=== PATIENT | female | born 1940 | race Caucasian/White ===

== ENCOUNTER 2017-09-09 15:30 | Observation (INO) | payer MEDICARE ==
[~2017-09-09] VITALS: Ht 154.9 cm; Wt 84.0 kg
[~2017-09-09 15:30] MED LIST: ASPI81CH6 CHEW; ATOR10TA15 PO; CILO50TA PO; CIPR-9 PO; D200CAP PO; HYDR-3516 PO; LOSA50TA PO; METO-309 PO; NYST10007 TOPICAL; OMEP20TA93 PO; TRAZ50TA12 PO; VENTAER INH
[2017-09-09 15:32] VITALS: BP 142/66; PULSE 87; RESP 14; TEMP 98; O2SAT 97
--- NOTE | 2017-09-09 16:37 | PD ---
HPI Chief Complaint: GI Complaint Time Seen by Provider: 16:31 Travel History International Travel<30 days: No Contact w/Intl Traveler<30days: No Traveled to known affect area: No History of Present Illness HPI 77-year-old female came to the emergency room with history of color stool 4-5 times a day for past 5 days. Patient went to the urgent care today and was transferred to the emergency room from there. She has been having some generalized weakness for past few days. Patient had a endoscopy and colonoscopy [address] Romero and that was negative. Vital signs are stable right now. No history of any vomiting or abdominal pain. Patient is on 1 baby aspirin daily. This has never happened to her in the past. [facility] Past Medical History Narrative Medical List of her past medical, surgical, social and family history is reviewed from the nursing note. Anemia: Yes Autoimmune Disease: No Blood Disorders: No Heart Rhythm Problems: Yes Cancer: No Cardiovascular Problems: Yes High Cholesterol: Yes Chemotherapy: No Chest Pain: No Congestive Heart Failure: No Cerebrovascular Accident: Yes (2014) Coronary Artery Disease: Yes Diabetes: No Diminished Hearing: No Diverticulitis: Yes Endocrine: No Gastrointestinal Disorders: Yes GERD: Yes Glaucoma: No Genitourinary: Yes Hepatitis: No Hiatal Hernia: No Hypertension: Yes Immune Disorder: No Implanted Vascular Access Dvce: No Musculoskeletal: No Neurologic: Yes (TIA X 2) Psychiatric: No Reproductive: No Respiratory: Yes (SLEEP APNEA) Myocardial Infarction: No Radiation Therapy: No Shingles: Yes Sleep Apnea: Yes (USES CPAP "SOMETIMES") Thyroid Disease: No Menopausal: Yes : 0 Past Surgical History Abdominal Surgery: Yes (ISABEL; APPENDECTOMY) AICD: No Appendectomy: Yes Cardiac Surgery: No Cholecystectomy: Yes Ear Surgery: No Endocrine Surgery: No Eye Surgery: Yes (BILATERAL CATARACTS) Genitourinary Surgery: No Gynecologic Surgery: Yes (HYSTERECTOMY; --BILATERAL SALPINGO--OOPHORECTOMY) Hysterectomy: Yes Neurologic Surgery: No Oral Surgery: No Pacemaker: No Thoracic Surgery: No Other Surgery: Yes Social History Alcohol Use: No Tobacco Use: No (QUIT 1983) Substance Use: No Allergies-Medications (Allergen,Severity, Reaction): Coded Allergies: latex (Verified Allergy, Severe, REDNESS, SWELLING, 09/09/17) SITE REACTION- INTERMEDIATE REACTION niacin (Verified Allergy, Intermediate, Itching, 09/09/17) HIVES & REDNESS ; VERY NERVOUS ACTING; SEVERE REACTION Sulfa (Sulfonamide Antibiotics) (Verified Allergy, Unknown, HIVES, ) MILD REACTION penicillin G (Verified Allergy, Unknown, HIVES, 09/09/17) SEVERE REACTION - HIVES INCREASE IN HEART RATE; DIFFICULT BREATHING Comments List of her allergies reviewed from the nursing note. Reported Meds & Prescriptions Reported Meds & Active Scripts Active Lopressor (Metoprolol Tartrate) 50 Mg Tab 75 Mg PO Q8HR 30 Days Trazodone (Trazodone HCl) 50 Mg Tab 50 Mg PO HS Reported Zolpidem (Zolpidem Tartrate) 10 Mg Tab 10 Mg PO HS PRN Ventolin Hfa 18 GM Inh (Albuterol Sulfate) 90 Mcg/Act Aer 2 Puff INH Q4-6H PRN Atorvastatin (Atorvastatin Calcium) 10 Mg Tab 10 Mg PO HS Cilostazol 50 Mg Tab 50 Mg PO BID Aspirin Low Dose (Aspirin) 81 Mg Chew 81 Mg CHEW DAILY D3 Super Strength (Cholecalciferol) 2,000 Unit Cap 2,000 Units PO DAILY Narrative Medication List of her home medications reviewed from the nursing note. Review of Systems Except as stated in HPI: all other systems reviewed are Neg Gastrointestinal: Positive: Hematochezia Neurologic: Positive: Weakness Physical Exam Narrative GENERAL: Awake, alert, obese, mild distress SKIN: Focused skin assessment warm/dry. Pale HEAD: Atraumatic. Normocephalic. EYES: Pupils equal and round. No scleral icterus. No injection or drainage. Pallor ENT: No nasal bleeding or discharge. Mucous membranes pink and moist. NECK: Trachea midline. No JVD. CARDIOVASCULAR: Regular rate and rhythm. No murmur appreciated. RESPIRATORY: No accessory muscle use. Clear to auscultation. Breath sounds equal bilaterally. GASTROINTESTINAL: Abdomen soft, non-tender, nondistended. Hepatic and splenic margins not palpable. MUSCULOSKELETAL: No obvious deformities. No clubbing. No cyanosis. No edema. NEUROLOGICAL: Awake and alert. No obvious cranial nerve deficits. Motor grossly within normal limits. Normal speech. PSYCHIATRIC: Appropriate mood and affect; insight and judgment normal. Data Data Last Documented VS Orders Orders Complete Blood Count With Diff (09/09/17 15:46) Comprehensive Metabolic Panel (09/09/17 15:46) Lipase (09/09/17 15:46) Prothrombin Time / Inr (Pt) (09/09/17 15:46) Act Partial Throm Time (Ptt) (09/09/17 15:46) Type And Screen (09/09/17 15:46) Continuum Of Care Manager / Telemetry VARINDER.Q8H (09/09/17 16:58) Sodium Chlor 0.9% 1000 Ml Inj (Ns 1000 M (09/09/17 17:00) Sodium Chloride 0.9... W/Pantoprazole In (09/09/17 17:58) Sodium Chloride 0.9... W/Pantoprazole In (09/09/17 17:58) Admit Order (Ed Use Only) (09/09/17 17:09) Labs Laboratory Tests Test 09/09/17 16:05 White Blood Count 7.7 TH/MM3 Red Blood Count 3.54 MIL/MM3 Hemoglobin 10.8 GM/DL Hematocrit 31.4 % Mean Corpuscular Volume 88.7 FL Mean Corpuscular Hemoglobin 30.6 PG Mean Corpuscular Hemoglobin Concent 34.5 % Red Cell Distribution Width 14.5 % Platelet Count 126 TH/MM3 Mean Platelet Volume 7.0 FL Neutrophils (%) (Auto) 64.0 % Lymphocytes (%) (Auto) 25.0 % Monocytes (%) (Auto) 5.3 % Eosinophils (%) (Auto) 4.9 % Basophils (%) (Auto) 0.8 % Neutrophils # (Auto) 4.9 TH/MM3 Lymphocytes # (Auto) 1.9 TH/MM3 Monocytes # (Auto) 0.4 TH/MM3 Eosinophils # (Auto) 0.4 TH/MM3 Basophils # (Auto) 0.1 TH/MM3 CBC Comment DIFF FINAL Differential Comment Blood Urea Nitrogen 61 MG/DL Creatinine 2.07 MG/DL Random Glucose 122 MG/DL Total Protein 7.8 GM/DL Albumin 3.6 GM/DL Calcium Level 8.4 MG/DL Alkaline Phosphatase 119 U/L Aspartate Amino Transf (AST/SGOT) 26 U/L Alanine Aminotransferase (ALT/SGPT) 27 U/L Total Bilirubin 0.3 MG/DL Sodium Level 132 MEQ/L Potassium Level 4.8 MEQ/L Chloride Level 102 MEQ/L Carbon Dioxide Level 20.8 MEQ/L Anion Gap 9 MEQ/L Estimat Glomerular Filtration Rate 23 ML/MIN Lipase 274 U/L [facility] Medical Decision Making Medical Screen Exam Complete: Yes Emergency Medical Condition: Yes Medical Record Reviewed: Yes Differential Diagnosis Upper GI bleed, lower GI bleed Narrative Course 5:04 PM blood test results are back. Patient is mildly anemic but certainly not to the point where transfusion is needed. Chemistry suggestive off BUN/ creatinine elevation in the upper portion that is suggestive of upper GI bleed. I have ordered 1 L of IV fluid bolus. I discussed the case with Dr. Romero and he is okay with the management and he will see the patient. Waiting for the hospitalist to call back. Critical Care Narrative Aggregate critical care time was 30 minutes. Time to perform other separately billable procedures was not included in the critical care time. My time did not include minutes spent treating any other patients simultaneously or on activities that did not directly contribute to the patient's treatment. The services I provided to this patient were to treat and/or prevent clinically significant deterioration that could result in: GI bleed, Protonix bolus and drip I provided critical care services requiring my management, as noted below: Chart data review, documentation time, medication orders and management, vital sign assessments/reviewing monitor data, ordering and reviewing lab tests, ordering and interpreting/reviewing x-rays and diagnostic studies, care of the patient and discussion of the patient with the admitting physicians. Procedures EKG Prior to Arrival: No HemaPrompt Point of Care Internal Pos. & Neg. Controls: Passed Fecal Specimen Occult Blood: Positive Physician Communication Physician Communication Dr. Romero Diagnosis Primary Impression: GI bleed Qualified Codes: K92.2 - Gastrointestinal hemorrhage, unspecified Additional Impression: Renal failure Qualified Codes: N17.9 - Acute kidney failure, unspecified Admitting Information Admitting Physician Requests: Admit Scripts Omeprazole (Omeprazole) 20 Mg Tab 40 MG PO DAILY for gerd, #60 TAB 0 Refills Prov: Trice Coyle 09/11/17 Trish Matthew MD Sep 09, 2017 16:37
[2017-09-09 16:43] LABS: AUTOMATED NEUTROPHIL # 4.9 TH/MM3 (1.8-7.7); BASOPHIL # 0.1 TH/MM3 (0-0.2); BASOPHIL % 0.8 % (0.0-2.0); EOSINOPHIL # 0.4 TH/MM3 (0-0.4); EOSINOPHIL % 4.9 % (0.0-4.0); HEMATOCRIT 31.4 % (35.0-46.0); HEMO FLAGS DIFF FINAL; LYMPHOCYTE # 1.9 TH/MM3 (1.0-4.8); MEAN CELL VOLUME 88.7 FL (80.0-100.0); MEAN CORPUSCULAR HEMOGLOBIN 30.6 PG (27.0-34.0); MEAN CORPUSCULAR HGB CONC 34.5 % (32.0-36.0); MONO % 5.3 % (0.0-8.0); PLATELET COUNT 126 TH/MM3 (150-450); RED BLOOD COUNT 3.54 MIL/MM3 (4.00-5.30); RED CELL DISTRIBUTION WIDTH 14.5 % (11.6-17.2); WHITE BLOOD COUNT 7.7 TH/MM3 (4.0-11.0)
[2017-09-09 16:50] LABS: ALT (GPT) 27 U/L (10-53); ANION GAP 9 MEQ/L (5-15); AST (GOT) 26 U/L (15-37); BICARBONATE 20.8 MEQ/L (21.0-32.0); BLOOD UREA NITROGEN 61 MG/DL (7-18); CHLORIDE 102 MEQ/L (98-107); GLOMERULAR FILTRATION RATE 23 ML/MIN (>89); SODIUM (NA) 132 MEQ/L (136-145)
[2017-09-09 16:52] LABS: ALKALINE PHOSPHATASE 119 U/L (45-117); POTASSIUM 4.8 MEQ/L (3.5-5.1); TOTAL BILIRUBIN ADULT 0.3 MG/DL (0.2-1.0)
[2017-09-09] MEDS ORDERED: SODIUM CHLOR 0.9% 1000 ML INJ 1,000 ML IV ONE (17:00)
[2017-09-09 17:37] VITALS: BP 135/60; PULSE 83; RESP 18; O2SAT 97
[2017-09-09] MEDS ORDERED: PANTOPRAZOLE INJ 80 MG in SODIUM CHLORIDE 0.9% INJ 35 ML IV ONE (17:58)
[2017-09-09] MEDS ORDERED: SODIUM CHLORIDE 0.9% FLUSH 10 ML FLUSH IV FLUSH PRN (18:15)
--- NOTE | 2017-09-09 18:21 | HHI.HP ---
HPI Service [facility] Hospitalists Primary Care Physician Kulwinder Lugo MD Admission Diagnosis GI bleed Chief Complaint: dark stool, heme + stool as outpt Travel History International Travel<30 Days: No Contact w/Intl Traveler <30 Da: No Traveled to Known Affected Are: No History of Present Illness Pleasant 77-year-old female with history of coronary disease hypertension and peripheral arterial disease presents to the ER for evaluation directed by urgent care practitioner secondary to heme positive stool. Patient reports that she's had multiple dark tarry stools over the last 4-5 days. She denies any fevers or chills and denies hemoptysis or hematemesis. No coffee-ground emesis. No foreign travel. She never had similar dark bowel movements before. She does have history of diverticulitis in the past and a significant angulation of her sigmoid causing difficulty with attempted colonoscopies in the past. She reports that she felt a bit fatigued but otherwise no symptoms. Denies chest pain or shortness of breath. Denies urinary symptoms. She has not been eating much of late but does state she is hungry presently. Vital signs remained stable. Hemoglobin was around 10-1/2. Review of Systems Constitutional: COMPLAINS OF: Fatigue, DENIES: Diaphoretic episodes, Fever, Weight gain, Weight loss, Chills, Dizziness, Change in appetite, Night Sweats Eyes: DENIES: Blurred vision, Diplopia, Eye inflammation, Eye pain, Vision loss , Photosensitivity, Double Vision Ears, nose, mouth, throat: DENIES: Tinnitus, Hearing loss, Vertigo, Nasal discharge, Oral lesions, Throat pain, Hoarseness, Ear Pain, Running Nose, Epistaxis, Sinus Pain, Toothache, Odynophagia Respiratory: COMPLAINS OF: Wheezing, DENIES: Apneas, Cough, Snoring, Hemoptysis , Sputum production, Shortness of breath Cardiovascular: DENIES: Chest pain, Palpitations, Syncope, Dyspnea on Exertion , PND, Lower Extremity Edema, Orthopnea, Claudication Gastrointestinal: COMPLAINS OF: Black stools, Diarrhea, GERD, Reflux, DENIES: Abdominal pain, Bloody stools, BRB per rectum, Constipation, Nausea, Vomiting, Difficulty Swallowing, Anorexia, See HPI Musculoskeletal: COMPLAINS OF: Joint pain, Back pain Integumentary: DENIES: Abnormal pigmentation, Pruritus, Rash, Nail changes, Breast masses, Breast skin changes, Nipple discharge Hematologic/lymphatic: DENIES: Bruising, Lymphadenopathy Immunologic/allergic: DENIES: Eczema, Urticaria Neurologic: DENIES: Abnormal gait, Headache, Localized weakness, Paresthesias, Seizures, Speech Problems, Tremor, Poor Balance Psychiatric: COMPLAINS OF: Anxiety, DENIES: Confusion, Mood changes, Depression , Hallucinations, Agitation, Suicidal Ideation, Homicidal Ideation, Delusions, History of Bipolar, History of Schizophrenia Past Family Social History Past Medical History Macular degen CAD Renal artery stenosis CKD-3 COPD GERD HTN Hyperlipidemia PAD Thrombocytosis TIA Colonic stricture Past Surgical History Appy 1960 Cholecystectomy 1998 Hysterectomy 1968 Renal artery stent placement L shoulder surgery T&A Colonoscopy 05/2013- tight sigmoid angulation could not pass scope, ? stricture Reported Medications Lopressor (Metoprolol Tartrate) 50 Mg twice a day Trazodone (Trazodone HCl) 50 Mg Tab 50 Mg PO HS Ventolin Hfa 18 GM Inh (Albuterol Sulfate) 90 Mcg/Act Aer 2 Puff INH Q4-6H PRN Losartan (Losartan Potassium) 50 Mg Tab twice a day Atorvastatin (Atorvastatin Calcium) 10 Mg Tab 10 Mg PO HS Cilostazol 50 Mg Tab 50 Mg PO BID Omeprazole 20 Mg Tab 20 Mg PO DAILY Aspirin Low Dose (Aspirin) 81 Mg Chew 81 Mg CHEW DAILY Multivitamin once daily Amlodipine 5 mg twice a day Ambien 10 mg daily at bedtime when necessary Allergies: Coded Allergies: latex (Unverified Allergy, Severe, REDNESS, SWELLING, 09/09/17) SITE REACTION- INTERMEDIATE REACTION niacin (Unverified Allergy, Intermediate, Itching, 09/09/17) HIVES & REDNESS ; VERY NERVOUS ACTING; SEVERE REACTION Sulfa (Sulfonamide Antibiotics) (Unverified Allergy, Unknown, HIVES, 09/09) MILD REACTION penicillin G (Unverified Allergy, Unknown, HIVES, 09/09/17) SEVERE REACTION - HIVES INCREASE IN HEART RATE; DIFFICULT BREATHING Family History N/C Social History No tobacco since 1983, prior to that smoked 1 to 1-1/2 packs per day for 16 years No alcohol in several years Originally from [place], has been in the area for over 30 years Previous work with her selling light fixtures Physical Exam Vital Signs Vital Signs Date Time Temp Pulse Resp B/P (MAP) Pulse Ox O2 Delivery O2 Flow Rate FiO2 09/09/17 17:37 83 18 135/60 (85) 97 Room Air 09/09/17 15:32 98.0 87 14 142/66 (91) 97 Physical Exam GENERAL: This is a well-nourished, well-developed patient, in no apparent distress. Alert and oriented. SKIN: No rashes, ecchymoses or lesions. Cool and dry. No petechiae. HEAD: Atraumatic. Normocephalic. No temporal or scalp tenderness. EYES: Pupils equal round and reactive. Extraocular motions intact. No scleral icterus. No injection or drainage. ENT: Nose without bleeding, purulent drainage or septal hematoma. Airway patent. NECK: Trachea midline. No JVD or lymphadenopathy. Supple, nontender, no meningeal signs. CARDIOVASCULAR: Regular rate and rhythm without murmurs, gallops, or rubs. RESPIRATORY: Clear to auscultation. Breath sounds equal bilaterally. No wheezes , rales, or rhonchi. GASTROINTESTINAL: Abdomen soft, non-tender, nondistended. No hepato-splenomegaly , or palpable masses. No guarding. Bowel sounds normal. MUSCULOSKELETAL: Extremities without clubbing, cyanosis, or edema. No joint tenderness, effusion, or edema noted. No calf tenderness. NEUROLOGICAL: Awake and alert. Cranial nerves II through XII intact. Motor and sensory grossly within normal limits. Five out of 5 muscle strength in all muscle groups. Normal speech. Laboratory Laboratory Tests Test 09/09/17 16:05 White Blood Count 7.7 Red Blood Count 3.54 Hemoglobin 10.8 Hematocrit 31.4 Mean Corpuscular Volume 88.7 Mean Corpuscular Hemoglobin 30.6 Mean Corpuscular Hemoglobin Concent 34.5 Red Cell Distribution Width 14.5 Platelet Count 126 Mean Platelet Volume 7.0 Neutrophils (%) (Auto) 64.0 Lymphocytes (%) (Auto) 25.0 Monocytes (%) (Auto) 5.3 Eosinophils (%) (Auto) 4.9 Basophils (%) (Auto) 0.8 Neutrophils # (Auto) 4.9 Lymphocytes # (Auto) 1.9 Monocytes # (Auto) 0.4 Eosinophils # (Auto) 0.4 Basophils # (Auto) 0.1 CBC Comment DIFF FINAL Differential Comment Blood Urea Nitrogen 61 Creatinine 2.07 Random Glucose 122 Total Protein 7.8 Albumin 3.6 Calcium Level 8.4 Alkaline Phosphatase 119 Aspartate Amino Transf (AST/SGOT) 26 Alanine Aminotransferase (ALT/SGPT) 27 Total Bilirubin 0.3 Sodium Level 132 Potassium Level 4.8 Chloride Level 102 Carbon Dioxide Level 20.8 Anion Gap 9 Estimat Glomerular Filtration Rate 23 Lipase 274 Result Diagram: 09/09/17 1605 09/09/17 1605 Caprini VTE Risk Assessment Caprini VTE Risk Assessment: Mod/High Risk (score >= 2) Caprini Risk Assessment Model Point Value = 1 Point Value = 2 Point Value = 3 Point Value = 5 Age 41-60 Minor surgery BMI > 25 kg/m2 Swollen legs Varicose veins or History of unexplained or recurrent spontaneous Oral contraceptives or hormone replacement Sepsis (< 1 month) Serious lung disease, including pneumonia (< 1 month) Abnormal pulmonary function Acute myocardial infarction Congestive heart failure (< 1 month) History of inflammatory bowel disease Medical patient at bed rest Age 61-74 Arthroscopic surgery Major open surgery (> 45 min) Laparoscopic surgery (> 45 min) Malignancy Confined to bed (> 72 hours) Immobilizing plaster cast Central venous access Age >= 75 History of VTE Family history of VTE Factor V Leiden Prothrombin [id number] Lupus anticoagulant Anticardiolipin antibodies Elevated serum homocysteine Heparin-induced thrombocytopenia Other congenital or acquired thrombophilia Stroke (< 1 month) Elective arthroplasty Hip, pelvis, or leg fracture Acute spinal cord injury (< 1 month) Prophylaxis Regimen Total Risk Factor Score Risk Level Prophylaxis Regimen 0-1 Low Early ambulation 2 Moderate Order ONE of the following: *Sequential Compression Device (SCD) *Heparin 5000 units SQ BID 3-4 Higher Order ONE of the following medications: *Heparin 5000 units SQ TID *Enoxaparin/Lovenox 40 mg SQ daily (WT < 150 kg, CrCl > 30 mL/min) *Enoxaparin/Lovenox 30 mg SQ daily (WT < 150 kg, CrCl > 10-29 mL/min) *Enoxaparin/Lovenox 30 mg SQ BID (WT < 150 kg, CrCl > 30 mL/min) AND/OR *Sequential Compression Device (SCD) 5 or more Highest Order ONE of the following medications: *Heparin 5000 units SQ TID (Preferred with Epidurals) *Enoxaparin/Lovenox 40 mg SQ daily (WT < 150 kg, CrCl > 30 mL/min) *Enoxaparin/Lovenox 30 mg SQ daily (WT < 150 kg, CrCl > 10-29 mL/min) *Enoxaparin/Lovenox 30 mg SQ BID (WT < 150 kg, CrCl > 30 mL/min) AND *Sequential Compression Device (SCD) Assessment and Plan Problem List: (1) GI bleed ICD Codes: K92.2 - Gastrointestinal hemorrhage, unspecified Status: Acute Plan: VSS. GI consulted. We'll allow her to have clear liquids presently. Hx of tight sigmoid angulation so colonoscopy may be difficult (2) GERD (gastroesophageal reflux disease) ICD Codes: K21.9 - GERD (gastroesophageal reflux disease) Status: Chronic Plan: continue PPI GI to see pt (3) CKD (chronic kidney disease) stage 3, GFR 30-59 ml/min ICD Codes: N18.3 - Chronic kidney disease, stage III (moderate) Status: Chronic Plan: GFR a bit lower than baseline. Will provide IVF. Elevated BUN likely secondary to GI bleed monitor I/O, renal indices (4) HTN (hypertension), benign ICD Codes: I10 - Benign hypertension Status: Chronic Plan: Resume home meds as clinically appropriate. (5) CAD (coronary artery disease) ICD Codes: I25.10 - Coronary artery disease Status: Chronic Plan: No symptoms. We'll hold aspirin and cilostazol for now. Code Status full Discussed Condition With Patient, her nurse and ER provider Problem Qualifiers (1) GI bleed: Qualified Codes: K92.2 - Gastrointestinal hemorrhage, unspecified Jaison Patel MD PhD Sep 09, 2017 18:21
[2017-09-09 20:00] VITALS: BP 176/73; PULSE 86; RESP 18; TEMP 96.3; O2SAT 98
[2017-09-09] MEDS ORDERED: RESP: ALBUTEROL 2.5 MG/IPRATROPIUM 0.5 MG NEB (PRN) NEB (20:15)
[2017-09-09] MEDS: PANTOPRAZOLE INJ 80 MG in SODIUM CHLORIDE 0.9% INJ 100 ML IV SCH (20:38)
[2017-09-09] MEDS: SODIUM CHLOR 0.9% 1000 ML INJ 1,000 ML IV SCH (20:38)
[2017-09-09] MEDS: SODIUM CHLORIDE 0.9% FLUSH 10 ML FLUSH IV FLUSH SCH (20:39)
[2017-09-09] MEDS ORDERED: ZOLP10TA3 PO (20:41)
[2017-09-09] MEDS ORDERED: METOPROLOL TARTRATE 50 MG TAB PO SCH (22:45)
[2017-09-09] MEDS ORDERED: LOSARTAN 50 MG TAB PO SCH (22:45)
[2017-09-09] MEDS ORDERED: ZOLPIDEM TARTRATE 10 MG TAB PO SCH (22:45)
[2017-09-09] MEDS: ATORVASTATIN 10 MG TAB PO SCH (23:25)
[2017-09-09] MEDS: traZODone HCL 50 MG TAB PO SCH (23:25)
[2017-09-09] MEDS ORDERED: MAGNESIUM CITRATE SOLN 300 ML BTL PO ONE (23:30)
--- NOTE | 2017-09-09 23:32 | PD.CONS ---
HPI History of Present Illness This is a 77 year old female well-known to me from prior encounters presents to the emergency room with complaints of dark stools over the past few days she apparently was seen in the urgent care and was found to be guaiac-positive and so she was advised coming to the emergency room she does feel fatigued and tired some mild shortness of breath but denies any chest pain lightheadedness dizziness denies any nausea vomiting hematemesis coffee-ground emesis last time there was an attempted colonoscopy was incomplete due to technical difficulty PFSH Past Medical History Macular degen CAD Renal artery stenosis CKD-3 COPD GERD HTN Hyperlipidemia PAD Thrombocytosis TIA Colonic stricture Past Surgical History Appy 196 Cholecystectomy 1998 Hysterectomy 1968 Renal artery stent placement L shoulder surgery T&A Colonoscopy 05/2013- tight sigmoid angulation could not pass scope, ? stricture Coded Allergies: latex (Verified Allergy, Severe, REDNESS, SWELLING, 09/09/17) SITE REACTION- INTERMEDIATE REACTION niacin (Verified Allergy, Intermediate, Itching, 09/09/17) HIVES & REDNESS ; VERY NERVOUS ACTING; SEVERE REACTION Sulfa (Sulfonamide Antibiotics) (Verified Allergy, Unknown, HIVES, ) MILD REACTION penicillin G (Verified Allergy, Unknown, HIVES, 09/09/17) SEVERE REACTION - HIVES INCREASE IN HEART RATE; DIFFICULT BREATHING Medications Lopressor (Metoprolol Tartrate) 50 Mg twice a day Trazodone (Trazodone HCl) 50 Mg Tab 50 Mg PO HS Ventolin Hfa 18 GM Inh (Albuterol Sulfate) 90 Mcg/Act Aer 2 Puff INH Q4-6H PRN Losartan (Losartan Potassium) 50 Mg Tab twice a day Atorvastatin (Atorvastatin Calcium) 10 Mg Tab 10 Mg PO HS Cilostazol 50 Mg Tab 50 Mg PO BID Omeprazole 20 Mg Tab 20 Mg PO DAILY Aspirin Low Dose (Aspirin) 81 Mg Chew 81 Mg CHEW DAILY Multivitamin once daily Amlodipine 5 mg twice a day Ambien 10 mg daily at bedtime when necessary Family History Noncontributory Social History No alcohol or tobacco Review of Systems ROS Review of systems Patient denies any headache dizziness blurry vision, denies any chest pain shortness of breath cough fever chills, Denies any palpitations or fatigue denies any polyuria dysuria hematuria, denies any numbness tingling or weakness, denies any skin rash pruritus or jaundice, denies any easy bruising or bleeding tendency, denies any recent change in mood GI Exam Vitals I&O Vital Signs Date Time Temp Pulse Resp B/P (MAP) Pulse Ox O2 Delivery O2 Flow Rate FiO2 09/09/17 20:00 96.3 86 18 176/73 (107) 98 09/09/17 17:37 83 18 135/60 (85) 97 Room Air 09/09/17 15:32 98.0 87 14 142/66 (91) 97 Laboratory Test 09/09/17 16:05 White Blood Count 7.7 TH/MM3 Red Blood Count 3.54 MIL/MM3 Hemoglobin 10.8 GM/DL Hematocrit 31.4 % Mean Corpuscular Volume 88.7 FL Mean Corpuscular Hemoglobin 30.6 PG Mean Corpuscular Hemoglobin Concent 34.5 % Red Cell Distribution Width 14.5 % Platelet Count 126 TH/MM3 Mean Platelet Volume 7.0 FL Neutrophils (%) (Auto) 64.0 % Lymphocytes (%) (Auto) 25.0 % Monocytes (%) (Auto) 5.3 % Eosinophils (%) (Auto) 4.9 % Basophils (%) (Auto) 0.8 % Neutrophils # (Auto) 4.9 TH/MM3 Lymphocytes # (Auto) 1.9 TH/MM3 Monocytes # (Auto) 0.4 TH/MM3 Eosinophils # (Auto) 0.4 TH/MM3 Basophils # (Auto) 0.1 TH/MM3 CBC Comment DIFF FINAL Differential Comment Blood Urea Nitrogen 61 MG/DL Creatinine 2.07 MG/DL Random Glucose 122 MG/DL Total Protein 7.8 GM/DL Albumin 3.6 GM/DL Calcium Level 8.4 MG/DL Alkaline Phosphatase 119 U/L Aspartate Amino Transf (AST/SGOT) 26 U/L Alanine Aminotransferase (ALT/SGPT) 27 U/L Total Bilirubin 0.3 MG/DL Sodium Level 132 MEQ/L Potassium Level 4.8 MEQ/L Chloride Level 102 MEQ/L Carbon Dioxide Level 20.8 MEQ/L Anion Gap 9 MEQ/L Estimat Glomerular Filtration Rate 23 ML/MIN Lipase 274 U/L Physical Examination HEENT: Pupils round and reactive to light; normocephalic; atraumatic; no jaundice. Throat is clear. NECK: Neck is supple, no JVD, no lymphadenopathy. CHEST: Chest is clear to auscultation and percussion. CARDIAC: Regular rate and rhythm with no murmur gallop or rubs. ABDOMEN: Soft, nondistended, nontender; no hepatosplenomegaly; bowel sounds are present in all four quadrants. EXTREMITIES: No clubbing, cyanosis, or edema. SKIN: Normal; no rash; no jaundice. FISH HEADER: No focal deficits; alert and oriented times three. Assessment and Plan Plan Anemia, guaiac-positive stools Patient advised an EGD and a colonoscopy and she is agreeable I do agree with current supportive care Monitor labs and transfuse as needed Further recommendations shall depend on the findings of endoscopy Levi Romero MD Sep 09, 2017 23:32
[2017-09-10] VITALS (8 sets, daily range): BP systolic 99–151; BP diastolic 51–69; PULSE 87–123; RESP 17–18; TEMP 96–96.8; O2SAT 95–99
[2017-09-10] MEDS ORDERED: MAGNESIUM CITRATE SOLN 300 ML BTL PO ONE (05:00)
[2017-09-10 05:14] LABS: AUTOMATED NEUTROPHIL # 6.3 TH/MM3 (1.8-7.7); BASOPHIL # 0.1 TH/MM3 (0-0.2); BASOPHIL % 0.8 % (0.0-2.0); EOSINOPHIL # 0.6 TH/MM3 (0-0.4); EOSINOPHIL % 6.1 % (0.0-4.0); HEMATOCRIT 29.4 % (35.0-46.0); HEMO FLAGS DIFF FINAL; LYMPH % 21.9 % (9.0-44.0); LYMPHOCYTE # 2.1 TH/MM3 (1.0-4.8); MEAN CELL VOLUME 86.7 FL (80.0-100.0); MEAN CORPUSCULAR HEMOGLOBIN 29.4 PG (27.0-34.0); MEAN CORPUSCULAR HGB CONC 33.9 % (32.0-36.0); MONO % 5.4 % (0.0-8.0); NEUT % 65.8 % (16.0-70.0); PLATELET COUNT 343 TH/MM3 (150-450); RED BLOOD COUNT 3.39 MIL/MM3 (4.00-5.30); RED CELL DISTRIBUTION WIDTH 14.5 % (11.6-17.2); WHITE BLOOD COUNT 9.6 TH/MM3 (4.0-11.0)
[2017-09-10 05:33] LABS: APTT (PATIENT) 24.7 SEC (24.3-30.1); PROTHROMBIN TIME - PATIENT 10.2 SEC (9.8-11.6)
[2017-09-10 05:43] LABS: ALT (GPT) 25 U/L (10-53); ANION GAP 9 MEQ/L (5-15); AST (GOT) 18 U/L (15-37); BICARBONATE 22.1 MEQ/L (21.0-32.0); BLOOD UREA NITROGEN 58 MG/DL (7-18); CHLORIDE 107 MEQ/L (98-107); GLOMERULAR FILTRATION RATE 25 ML/MIN (>89); SODIUM (NA) 138 MEQ/L (136-145)
[2017-09-10 05:45] LABS: ALKALINE PHOSPHATASE 113 U/L (45-117); TOTAL BILIRUBIN ADULT 0.3 MG/DL (0.2-1.0)
[2017-09-10] MEDS ORDERED: LOSARTAN 50 MG TAB PO SCH (09:00)
[2017-09-10] MEDS ORDERED: INFLUENZA VIRUS VACCINE (QUADRIVALENT) 0.5 ML SYR IM ONE (09:00)
[2017-09-10] MEDS: SODIUM CHLORIDE 0.9% FLUSH 10 ML FLUSH IV FLUSH SCH ×2 (09:00→19:39)
[2017-09-10] MEDS: METOPROLOL TARTRATE 50 MG TAB PO SCH ×2 (09:00→19:38)
[2017-09-10] MEDS ORDERED: DO NOT ADM ANY ANTICOAGULANT DRUGS PRN (10:20)
--- NOTE | 2017-09-10 11:01 | PD.PROCEDR ---
GI Procedure REFERRING PHYSICIAN Dr. Mckenzie PROCEDURE PERFORMED EGD with biopsy and cautery followed by a colonoscopy INDICATION FOR PROCEDURE Anemia and guaiac positive stools PROCEDURE: The procedure, risks and benefits were discussed with Ms. Purdy and informed consent was obtained. Anesthesia sedated her with Diprivan. She was placed in the left lateral decubitus position. EGD: The Pentax videoscope was introduced through the oropharynx and advanced to the second portion of the duodenum under direct visualization. Retroflexion was performed in the stomach. FINDINGS: The esophagus this was normal The stomach there was a small hiatal hernia there was some punctate patchy erythema in the antrum no ulcerations or erosions this was biopsied the rest of the gastric mucosa was unremarkable The duodenum there was a small AVM at the duodenal sweep this was cauterized otherwise the duodenum was unremarkable Colonoscopy: The Pentax videoscope was introduced through the rectum and advanced to the hepatic flexure. Retroflexion was performed in the rectum. Colonic prep was good FINDINGS: I was only able to advance the scope to the hepatic flexure and unable to push beyond that due to technical difficulty apart from diverticulosis colonic mucosa was unremarkable within normal limits there was kind of a kink or tortuosity in the sigmoid played to this limitation of colonoscopy ESTIMATED BLOOD LOSS: None SPECIMENS REMOVED: Stomach COMPLICATIONS: None IMPRESSION: Hiatal hernia Gastritis Duodenal AVM Diverticulosis PLAN: Advance diet Monitor labs If anemia persists consider small bowel follow through followed by capsule endoscopy Follow-up with GI post discharge Levi Romero MD Sep 10, 2017 11:01
--- NOTE | 2017-09-10 11:21 | HHI.PR ---
Subjective Remarks Pt just returned from GI lab Objective Vitals Vital Signs Date Time Temp Pulse Resp B/P (MAP) Pulse Ox O2 Delivery O2 Flow Rate FiO2 09/10/17 10:56 99 09/10/17 08:00 96.7 95 17 99/51 (67) 99 09/10/17 00:04 97 09/10/17 00:00 96.3 87 18 118/59 (78) 98 09/09/17 20:00 96.3 86 18 176/73 (107) 98 09/09/17 17:37 83 18 135/60 (85) 97 Room Air 09/09/17 15:32 98.0 87 14 142/66 (91) 97 09/10/17 09/10/17 09/11/17 15:00 23:00 07:00 Intake Total 450 ml Balance 450 ml Other 450 ml Result Diagram: 09/10/17 0420 09/10/17 0440 Other Results Laboratory Tests Test 09/09/17 16:05 09/10/17 04:20 09/10/17 04:40 White Blood Count 7.7 TH/MM3 9.6 TH/MM3 Red Blood Count 3.54 MIL/MM3 3.39 MIL/MM3 Hemoglobin 10.8 GM/DL 10.0 GM/DL Hematocrit 31.4 % 29.4 % Mean Corpuscular Volume 88.7 FL 86.7 FL Mean Corpuscular Hemoglobin 30.6 PG 29.4 PG Mean Corpuscular Hemoglobin Concent 34.5 % 33.9 % Red Cell Distribution Width 14.5 % 14.5 % Platelet Count 126 TH/MM3 343 TH/MM3 Mean Platelet Volume 7.0 FL 6.6 FL Neutrophils (%) (Auto) 64.0 % 65.8 % Lymphocytes (%) (Auto) 25.0 % 21.9 % Monocytes (%) (Auto) 5.3 % 5.4 % Eosinophils (%) (Auto) 4.9 % 6.1 % Basophils (%) (Auto) 0.8 % 0.8 % Neutrophils # (Auto) 4.9 TH/MM3 6.3 TH/MM3 Lymphocytes # (Auto) 1.9 TH/MM3 2.1 TH/MM3 Monocytes # (Auto) 0.4 TH/MM3 0.5 TH/MM3 Eosinophils # (Auto) 0.4 TH/MM3 0.6 TH/MM3 Basophils # (Auto) 0.1 TH/MM3 0.1 TH/MM3 CBC Comment DIFF FINAL DIFF FINAL Differential Comment Blood Urea Nitrogen 61 MG/DL 58 MG/DL Creatinine 2.07 MG/DL 1.97 MG/DL Random Glucose 122 MG/DL 104 MG/DL Total Protein 7.8 GM/DL 7.2 GM/DL Albumin 3.6 GM/DL 3.5 GM/DL Calcium Level 8.4 MG/DL 8.9 MG/DL Alkaline Phosphatase 119 U/L 113 U/L Aspartate Amino Transf (AST/SGOT) 26 U/L 18 U/L Alanine Aminotransferase (ALT/SGPT) 27 U/L 25 U/L Total Bilirubin 0.3 MG/DL 0.3 MG/DL Sodium Level 132 MEQ/L 138 MEQ/L Potassium Level 4.8 MEQ/L 4.0 MEQ/L Chloride Level 102 MEQ/L 107 MEQ/L Carbon Dioxide Level 20.8 MEQ/L 22.1 MEQ/L Anion Gap 9 MEQ/L 9 MEQ/L Estimat Glomerular Filtration Rate 23 ML/MIN 25 ML/MIN Lipase 274 U/L Prothrombin Time 10.2 SEC Prothromb Time International Ratio 1.0 RATIO Activated Partial Thromboplast Time 24.7 SEC Objective Remarks General: NAD, AAOx3 Chest: CTA Cardiac: Regular Abd: +BS, soft ND/NT Ext: No edema A/P Problem List: (1) GI bleed ICD Codes: K92.2 - Gastrointestinal hemorrhage, unspecified Status: Acute Plan: Pt is a 77-year-old female with CAD, hypertension and peripheral arterial disease who presented to the ED from an urgent care for heme positive stool. Patient reports that she's had multiple dark tarry stools over the previous 4-5 days. Labs at admission were stable with Hgb 10.8/hct 31.4. GIB/Hemoccult positive stools Anemia - Pts labs are fairly stable. Repeat labs on 09/10 with Hgb 10.0/Hct 29.4 - GI following - Pt underwent EGD/incomplete colonoscopy on 09/10/17 --> small hiatal hernia there was some punctate patchy erythema in the antrum no ulcerations or erosions, a small AVM at the duodenal sweep this was cauterized otherwise the duodenum was unremarkable, scope was only able to be advanced to the hepatic flexure and unable to push beyond that due to technical difficulty apart from diverticulosis colonic mucosa was unremarkable - Cont. PPI - Monitor for any continued bleeding - Repeat H/H in AM GERD - Cont. PPI CKD, stage 3 - Pts GFR is bit lower than baseline. - Cont. IVF - Elevated BUN likely secondary to GI bleed - monitor I/O, renal indices HTN - BP is low this morning - Hold Losartan - Place parameters on Metoprolol CAD - No symptoms. - We'll hold aspirin and cilostazol for now. (2) GERD (gastroesophageal reflux disease) ICD Codes: K21.9 - GERD (gastroesophageal reflux disease) Status: Chronic Plan: - See above (3) CKD (chronic kidney disease) stage 3, GFR 30-59 ml/min ICD Codes: N18.3 - Chronic kidney disease, stage III (moderate) Status: Chronic Plan: - See above (4) HTN (hypertension), benign ICD Codes: I10 - Benign hypertension Status: Chronic Plan: - See above (5) CAD (coronary artery disease) ICD Codes: I25.10 - Coronary artery disease Status: Chronic Plan: - See above Assessment and Plan Patient examined. Assessment and plan formulated with Trice Coyle PA-C. I agree with the above. ugib. sp cauterization of avm. tortuous colon gi recc outpt poss. pill endoscopy or sbft. ivf and recheck bun/cr. pt noted to have marito/ckd d/c in AM if no further bleeding. Problem Qualifiers (1) GI bleed: Qualified Codes: K92.2 - Gastrointestinal hemorrhage, unspecified Trice Coyle Sep 10, 2017 11:21 Justen Mckenzie MD Sep 10, 2017 13:04
[2017-09-10] MEDS ORDERED: LIDOCAINE HCL 1% PF 5 ML SYRINGE OTHER ONE (12:00)
[2017-09-10] MEDS ORDERED: ePHEDrine/NS 25 MG/5 ML SYR IV ONE (12:00)
[2017-09-10] MEDS ORDERED: PROPOFOL 200 MG/20 ML AMP IV ONE (12:00)
[2017-09-10] MEDS ORDERED: PHENYLEPH/NS 1000 MCG/10 ML SYR IV ONE (12:00)
[2017-09-10] MEDS: SODIUM CHLOR 0.9% 1000 ML INJ 1,000 ML IV SCH ×2 (12:28→22:55)
[2017-09-10] MEDS: PANTOPRAZOLE INJ 80 MG in SODIUM CHLORIDE 0.9% INJ 100 ML IV SCH ×2 (12:28→22:53)
[2017-09-10] MEDS: ACETAMINOPHEN 325 MG TAB PO PRN ×2 (14:28→19:39)
--- NOTE | 2017-09-10 15:02 | EKG ---
Date Performed: 09/10/2017 Time Performed: 06:32:48 PTAGE: 77 years EKG: Sinus rhythm Right bundle branch block Abnormal ECG PREVIOUS TRACING : 09/15/2016 13.31 DOCTOR: Mickey Scott Interpretating Date/Time 09/10/2017 15:02:25
[2017-09-10] MEDS: ATORVASTATIN 10 MG TAB PO SCH (19:38)
[2017-09-10] MEDS: traZODone HCL 50 MG TAB PO SCH (19:38)
[2017-09-10] MEDS ORDERED: ZOLPIDEM TARTRATE 10 MG TAB PO SCH (21:00)
[2017-09-11 00:26] VITALS: BP 140/61; PULSE 92; RESP 18; TEMP 96.2; O2SAT 97
[2017-09-11] MEDS: ACETAMINOPHEN 325 MG TAB PO PRN ×2 (03:50→12:13)
[2017-09-11] MEDS: SODIUM CHLORIDE 0.9% FLUSH 10 ML FLUSH IV FLUSH SCH (07:52)
[2017-09-11] MEDS: METOPROLOL TARTRATE 50 MG TAB PO SCH ×2 (07:52→08:04)
[2017-09-11] MEDS: SODIUM CHLOR 0.9% 1000 ML INJ 1,000 ML IV SCH (07:54)
[2017-09-11] MEDS: PANTOPRAZOLE INJ 80 MG in SODIUM CHLORIDE 0.9% INJ 100 ML IV SCH (07:54)
[2017-09-11 08:00] VITALS: BP 146/65; PULSE 108; RESP 18; TEMP 96; O2SAT 99
--- NOTE | 2017-09-11 10:27 | HHI.PR ---
Subjective Remarks Pt reports that she had a small dark brown stool this morning No further black tarry stools She has been eating and drinking without difficulty She has been ambulating without difficulty Objective Vitals Vital Signs Date Time Temp Pulse Resp B/P (MAP) Pulse Ox O2 Delivery O2 Flow Rate FiO2 09/11/17 08:00 96.0 108 18 146/65 (92) 99 09/11/17 05:47 20 09/11/17 00:26 96.2 92 18 140/61 (87) 97 09/10/17 20:26 96.2 109 18 151/67 (95) 95 09/10/17 18:07 98 21 09/10/17 16:00 96.0 123 17 117/69 (85) 98 09/10/17 12:00 96.8 106 18 139/64 (89) 99 09/10/17 10:56 99 Result Diagram: 09/10/17 0420 09/10/17 0440 Other Results Laboratory Tests Test 09/09/17 16:05 09/10/17 04:20 09/10/17 04:40 White Blood Count 7.7 TH/MM3 9.6 TH/MM3 Red Blood Count 3.54 MIL/MM3 3.39 MIL/MM3 Hemoglobin 10.8 GM/DL 10.0 GM/DL Hematocrit 31.4 % 29.4 % Mean Corpuscular Volume 88.7 FL 86.7 FL Mean Corpuscular Hemoglobin 30.6 PG 29.4 PG Mean Corpuscular Hemoglobin Concent 34.5 % 33.9 % Red Cell Distribution Width 14.5 % 14.5 % Platelet Count 126 TH/MM3 343 TH/MM3 Mean Platelet Volume 7.0 FL 6.6 FL Neutrophils (%) (Auto) 64.0 % 65.8 % Lymphocytes (%) (Auto) 25.0 % 21.9 % Monocytes (%) (Auto) 5.3 % 5.4 % Eosinophils (%) (Auto) 4.9 % 6.1 % Basophils (%) (Auto) 0.8 % 0.8 % Neutrophils # (Auto) 4.9 TH/MM3 6.3 TH/MM3 Lymphocytes # (Auto) 1.9 TH/MM3 2.1 TH/MM3 Monocytes # (Auto) 0.4 TH/MM3 0.5 TH/MM3 Eosinophils # (Auto) 0.4 TH/MM3 0.6 TH/MM3 Basophils # (Auto) 0.1 TH/MM3 0.1 TH/MM3 CBC Comment DIFF FINAL DIFF FINAL Differential Comment Blood Urea Nitrogen 61 MG/DL 58 MG/DL Creatinine 2.07 MG/DL 1.97 MG/DL Random Glucose 122 MG/DL 104 MG/DL Total Protein 7.8 GM/DL 7.2 GM/DL Albumin 3.6 GM/DL 3.5 GM/DL Calcium Level 8.4 MG/DL 8.9 MG/DL Alkaline Phosphatase 119 U/L 113 U/L Aspartate Amino Transf (AST/SGOT) 26 U/L 18 U/L Alanine Aminotransferase (ALT/SGPT) 27 U/L 25 U/L Total Bilirubin 0.3 MG/DL 0.3 MG/DL Sodium Level 132 MEQ/L 138 MEQ/L Potassium Level 4.8 MEQ/L 4.0 MEQ/L Chloride Level 102 MEQ/L 107 MEQ/L Carbon Dioxide Level 20.8 MEQ/L 22.1 MEQ/L Anion Gap 9 MEQ/L 9 MEQ/L Estimat Glomerular Filtration Rate 23 ML/MIN 25 ML/MIN Lipase 274 U/L Prothrombin Time 10.2 SEC Prothromb Time International Ratio 1.0 RATIO Activated Partial Thromboplast Time 24.7 SEC Objective Remarks General: NAD, AAOx3 Chest: CTA Cardiac: Regular Abd: +BS, soft ND/NT Ext: No edema A/P Problem List: (1) GI bleed ICD Codes: K92.2 - Gastrointestinal hemorrhage, unspecified Status: Acute Plan: Pt is a 77-year-old female with CAD, hypertension and peripheral arterial disease who presented to the ED from an urgent care for heme positive stool. Patient reports that she's had multiple dark tarry stools over the previous 4-5 days. Labs at admission were stable with Hgb 10.8/hct 31.4. GIB/Hemoccult positive stools Anemia - Pts labs are fairly stable. Repeat labs on 09/10 with Hgb 10.0/Hct 29.4 - GI following - Pt underwent EGD/incomplete colonoscopy on 09/10/17 --> small hiatal hernia there was some punctate patchy erythema in the antrum no ulcerations or erosions, a small AVM at the duodenal sweep this was cauterized otherwise the duodenum was unremarkable, scope was only able to be advanced to the hepatic flexure and unable to push beyond that due to technical difficulty apart from diverticulosis colonic mucosa was unremarkable - Cont. PPI - Monitor for any continued bleeding - Await Repeat H/H this morning - Pt will need continued outpt followup with GI for possible SBFT +/- capsule endoscopy - Discussed the case with Dr. Romero this morning and pt is cleared to resume her ASA and Pletal upon discharge and followup with GI in 2 weeks - Recheck CBC next week as an outpt with results to Dr. Romero and Dr. Lugo GERD - Cont. PPI, increase outpt dose of Omeprazole to 40mg po daily CKD, stage 3 - Pts GFR is bit lower than baseline. - Cont. IVF - Elevated BUN likely secondary to GI bleed - monitor I/O, renal indices HTN - BP is low this morning - Hold Losartan - Place parameters on Metoprolol - HR is up slightly likely because she missed a dose of Metoprolol yesterday morning - BP starting to rise today - She normally takes Metoprolol 75mg Q8H and Losartan 50mg po daily at home. - She will be resumed on her home dose of Metoprolol upon discharge and hold the Losartan for now. - Pt is to monitor her blood pressure and heart rate at home once or twice daily and keep a record of this to present to her PCP at followup appointment. - Pt instructed that she is NOT TO TAKE the Losartan in the morning but that it may need to be resumed should her BP start to rise again. CAD - No symptoms. - Cleared to resumed aspirin and cilostazol upon discharge (2) GERD (gastroesophageal reflux disease) ICD Codes: K21.9 - GERD (gastroesophageal reflux disease) Status: Chronic Plan: - See above (3) CKD (chronic kidney disease) stage 3, GFR 30-59 ml/min ICD Codes: N18.3 - Chronic kidney disease, stage III (moderate) Status: Chronic Plan: - See above (4) HTN (hypertension), benign ICD Codes: I10 - Benign hypertension Status: Chronic Plan: - See above (5) CAD (coronary artery disease) ICD Codes: I25.10 - Coronary artery disease Status: Chronic Plan: - See above Assessment and Plan Patient examined. Assessment and plan formulated with Trice Coyle PA-C. I agree with the above. stable. no bleeding. discussed with GI . ok for d/c and f/u. pt eager for d/c and feels well. Problem Qualifiers (1) GI bleed: Qualified Codes: K92.2 - Gastrointestinal hemorrhage, unspecified Trice Coyle Sep 11, 2017 10:26 Justen Mckenzie MD Sep 11, 2017 13:30
[2017-09-11] MEDS ORDERED: PANTOPRAZOLE SOD 40 MG DELAYED RELEASE TAB PO SCH (10:30)
[2017-09-11] MEDS ORDERED: OMEP20TA93 PO (10:34)
--- NOTE | 2017-09-11 10:42 | HHI.DCPOC ---
Discharge Care Plan Diagnosis: (1) GI bleed (2) CAD (coronary artery disease) (3) CKD (chronic kidney disease) stage 3, GFR 30-59 ml/min (4) HTN (hypertension), benign (5) GERD (gastroesophageal reflux disease) Goals to Promote Your Health - Monitor for any signs of continued bleeding, including black tarry stools, red blood in the stool or in the commode, any increased fatigue, shortness of breath, dizziness, weakness, palpitations, or chest pain. Should you experience this call your GI physician and/or report back to the ER. - Monitor your blood pressure and heart rate at home once or twice daily and keep a record of this to present to your PCP at your followup appointment. - You are to resume your home dose of Metorpolol 75mg three times daily, and keep a close watch on your blood pressure - We will NOT resume your Losartan at this time but it may need to be resumed should your blood pressure start to rise - Your Omeprazole has been increased to 40mg daily, the dose can be adjusted at your followup appointment with GI. - Followup with your PCP, Dr. Lugo, in 1 week, call for an appt - Followup with Dr. Romero in 2 weeks, call for an appt. Directions to Meet Your Goals Take your medications as prescribed Follow your dietary instruction Follow activity as directed Keep your appointments as scheduled Take your immunizations and boosters as scheduled If your symptoms worsen call your PCP, if no PCP go to Urgent Care Center or Emergency Room Smoking is Dangerous to Your Health. Avoid second hand smoke Call the 24-hour hour crisis hotline for domestic abuse at Trice Coyle Sep 11, 2017 10:41
[2017-09-11 11:47] LABS: AUTOMATED NEUTROPHIL # 4.6 TH/MM3 (1.8-7.7); BASOPHIL # 0.1 TH/MM3 (0-0.2); BASOPHIL % 0.8 % (0.0-2.0); EOSINOPHIL # 0.6 TH/MM3 (0-0.4); EOSINOPHIL % 8.1 % (0.0-4.0); HEMATOCRIT 27.9 % (35.0-46.0); HEMO FLAGS DIFF FINAL; LYMPH % 22.6 % (9.0-44.0); LYMPHOCYTE # 1.7 TH/MM3 (1.0-4.8); MEAN CELL VOLUME 87.6 FL (80.0-100.0); MEAN CORPUSCULAR HEMOGLOBIN 29.9 PG (27.0-34.0); MEAN CORPUSCULAR HGB CONC 34.1 % (32.0-36.0); MONO % 5.3 % (0.0-8.0); NEUT % 63.2 % (16.0-70.0); PLATELET COUNT 316 TH/MM3 (150-450); RED BLOOD COUNT 3.18 MIL/MM3 (4.00-5.30); RED CELL DISTRIBUTION WIDTH 15.2 % (11.6-17.2); WHITE BLOOD COUNT 7.3 TH/MM3 (4.0-11.0)
[2017-09-11 12:00] VITALS: BP 130/84; PULSE 85; RESP 18; TEMP 96.2; O2SAT 99
== END 2017-09-11 13:46 | disposition home or self-care (01) ==
LOC: NEPC 15:30 → NEDA 17:12 → N07B 18:46
PROVIDERS: ADMIT Hospitalist; ATTEND Hospitalist
DX: K92.2 Gastrointestinal hemorrhage, unspecified (principal); D64.9 Anemia, unspecified; K29.50 Unspecified chronic gastritis without bleeding; K31.819 Angiodysplasia of stomach and duodenum without bleeding; K44.9 Diaphragmatic hernia without obstruction or gangrene; K57.90 Diverticulosis of intestine, part unspecified, without perforation or abscess without bleeding; K56.699 Other intestinal obstruction unspecified as to partial versus complete obstruction; I25.10 Atherosclerotic heart disease of native coronary artery without angina pectoris; I12.9 Hypertensive chronic kidney disease with stage 1 through stage 4 chronic kidney disease, or unspecified chronic kidney disease; N18.3 Chronic kidney disease, stage 3 (moderate); K21.9 Gastro-esophageal reflux disease without esophagitis; I73.9 Peripheral vascular disease, unspecified; I70.1 Atherosclerosis of renal artery; J44.9 Chronic obstructive pulmonary disease, unspecified; E78.5 Hyperlipidemia, unspecified; R06.02 Shortness of breath; D47.3 Essential (hemorrhagic) thrombocythemia; Z87.891 Personal history of nicotine dependence; Z86.73 Personal history of transient ischemic attack (TIA), and cerebral infarction without residual deficits
CPT/HCPCS: 00740; 43255; 45378; 76937; 80053; 83690; 85025; 85610; 85730; 86850; 86900; 86901; 88305; 88312; 93005; 96365; 96366; 99285; C9113; G0378; J2370; J7030

== ENCOUNTER 2017-09-26 13:06 | Inpatient (IN) | payer MEDICARE ==
[~2017-09-26] VITALS: Ht 154.9 cm; Wt 81.2 kg
[~2017-09-26 13:06] MED LIST changes: -CIPR-9 PO; -HYDR-3516 PO; -LOSA50TA PO; -NYST10007 TOPICAL; +ZOLP10TA3 PO
[2017-09-26 13:07] VITALS: BP 149/68; PULSE 88; RESP 16; TEMP 98.6; O2SAT 98
[2017-09-26 15:20] LABS: BASOPHIL # 0.1 TH/MM3 (0-0.2); BASOPHIL % 0.8 % (0.0-2.0); EOSINOPHIL # 0.5 TH/MM3 (0-0.4); EOSINOPHIL % 4.8 % (0.0-4.0); HEMATOCRIT 25.6 % (35.0-46.0); HEMOGLOBIN 8.8 GM/DL (11.6-15.3); LYMPH % 16.7 % (9.0-44.0); LYMPHOCYTE # 1.7 TH/MM3 (1.0-4.8); MEAN CORPUSCULAR HEMOGLOBIN 28.5 PG (27.0-34.0); MEAN CORPUSCULAR HGB CONC 34.3 % (32.0-36.0); MEAN PLATELET VOLUME 6.5 FL (7.0-11.0); MONO % 7.4 % (0.0-8.0); MONOCYTE # 0.7 TH/MM3 (0-0.9); NEUT % 70.3 % (16.0-70.0); PLATELET COUNT 383 TH/MM3 (150-450); RED BLOOD COUNT 3.09 MIL/MM3 (4.00-5.30); RED CELL DISTRIBUTION WIDTH 14.3 % (11.6-17.2); WHITE BLOOD COUNT 9.9 TH/MM3 (4.0-11.0)
--- NOTE | 2017-09-26 15:20 | PD ---
HPI Chief Complaint: General Weakness Time Seen by Provider: 15:05 Travel History International Travel<30 days: No Contact w/Intl Traveler<30days: No Traveled to known affect area: No History of Present Illness HPI 77-year old female presents emergency department for evaluation of her tarry stools 3 weeks. Patient states she has approximately 6-7 dark tarry stool daily. Patient states she feels lightheaded, dizzy and short of breath on exertion. Patient denies any nausea or vomiting at this time. Patient denies any fevers or chills. Patient denies any dysuria or hematuria. Patient's been evaluated by GI, Dr. Romero and colonoscopy was performed. When looking up the results of the colonoscopy Dr. Romero states he was unable to finish the colonoscopy due to technical difficulty. Patient denies any tobacco or alcohol use. PFSH Past Medical History Anemia: Yes Autoimmune Disease: No Blood Disorders: No Heart Rhythm Problems: No Cancer: No Cardiovascular Problems: Yes High Cholesterol: Yes Chemotherapy: No Chest Pain: No Congestive Heart Failure: No Cerebrovascular Accident: Yes (2014) Coronary Artery Disease: Yes Diabetes: No Diminished Hearing: No Diverticulitis: Yes Endocrine: No Gastrointestinal Disorders: Yes GERD: Yes Glaucoma: No Genitourinary: No Hepatitis: No Hiatal Hernia: No Hypertension: Yes Immune Disorder: No Implanted Vascular Access Dvce: No Musculoskeletal: No Neurologic: No Psychiatric: No Reproductive: Yes (Hysterectomy) Respiratory: No Myocardial Infarction: No Radiation Therapy: No Shingles: Yes Sleep Apnea: Yes Thyroid Disease: No Menopausal: Yes : 0 Past Surgical History Abdominal Surgery: Yes (ISABEL; APPENDECTOMY) AICD: No Appendectomy: Yes Body Medical Devices: Stent in Right renal artery Cardiac Surgery: No Cholecystectomy: Yes Ear Surgery: No Endocrine Surgery: No Eye Surgery: Yes (BILATERAL CATARACTS) Genitourinary Surgery: No Gynecologic Surgery: Yes (HYSTERECTOMY; --BILATERAL SALPINGO--OOPHORECTOMY) Hysterectomy: Yes Neurologic Surgery: No Oral Surgery: No Pacemaker: No Thoracic Surgery: No Other Surgery: Yes Social History Alcohol Use: No Tobacco Use: No Substance Use: No Allergies-Medications (Allergen,Severity, Reaction): Coded Allergies: latex (Verified Allergy, Severe, REDNESS, SWELLING, 09/26/17) SITE REACTION- INTERMEDIATE REACTION niacin (Verified Allergy, Intermediate, Itching, 09/26/17) HIVES & REDNESS ; VERY NERVOUS ACTING; SEVERE REACTION Sulfa (Sulfonamide Antibiotics) (Verified Allergy, Unknown, HIVES, ) MILD REACTION penicillin G (Verified Allergy, Unknown, HIVES, 09/26/17) SEVERE REACTION - HIVES INCREASE IN HEART RATE; DIFFICULT BREATHING Reported Meds & Prescriptions Reported Meds & Active Scripts Active Omeprazole 20 Mg Tab 40 Mg PO DAILY Lopressor (Metoprolol Tartrate) 50 Mg Tab 75 Mg PO Q8HR 30 Days Trazodone (Trazodone HCl) 50 Mg Tab 50 Mg PO HS Reported Preservision Areds (Multiple Vitamins W/ Minerals) 1 Tab 1 Tab PO DAILY Ropinirole 2 Mg Tab Unknown Dose PO HS Furosemide 20 Mg Tab Unknown Dose PO BID Chlorthalidone 25 Mg Tab Unknown Dose PO DAILY Amlodipine (Amlodipine Besylate) 5 Mg Tab Unknown Dose PO DAILY Zolpidem (Zolpidem Tartrate) 10 Mg Tab 10 Mg PO HS PRN Ventolin Hfa 18 GM Inh (Albuterol Sulfate) 90 Mcg/Act Aer 2 Puff INH Q4-6H PRN Atorvastatin (Atorvastatin Calcium) 10 Mg Tab 10 Mg PO HS Cilostazol 50 Mg Tab 50 Mg PO BID Aspirin Low Dose (Aspirin) 81 Mg Chew 81 Mg CHEW DAILY D3 Super Strength (Cholecalciferol) 2,000 Unit Cap 2,000 Units PO DAILY Review of Systems Except as stated in HPI: all other systems reviewed are Neg Physical Exam Narrative GENERAL: Well-nourished, well-developed morbidly obese white 77-year-old female patient in no acute distress. Resting comfortably on the stretcher. SKIN: Focused skin assessment warm/dry. HEAD: Atraumatic. Normocephalic. EYES: Pupils equal and round. No scleral icterus. No injection or drainage. ENT: No nasal bleeding or discharge. Mucous membranes pink and moist. NECK: Trachea midline. No JVD. CARDIOVASCULAR: Regular rate and rhythm. No murmur appreciated. RESPIRATORY: No accessory muscle use. Clear to auscultation. Breath sounds equal bilaterally. GASTROINTESTINAL: Abdomen large, soft, non-tender, nondistended. Hepatic and splenic margins not palpable. MUSCULOSKELETAL: No obvious deformities. No clubbing. No cyanosis. No edema. NEUROLOGICAL: Awake and alert. No obvious cranial nerve deficits. Motor grossly within normal limits. Normal speech. PSYCHIATRIC: Appropriate mood and affect; insight and judgment normal. Data Data Last Documented VS Vital Signs Date Time Temp Pulse Resp B/P (MAP) Pulse Ox O2 Delivery O2 Flow Rate FiO2 09/26/17 16:00 75 14 118/55 (76) 97 Room Air 09/26/17 13:07 98.6 Orders Orders Complete Blood Count With Diff (09/26/17 13:18) Comprehensive Metabolic Panel (09/26/17 13:18) Lipase (09/26/17 13:18) Prothrombin Time / Inr (Pt) (09/26/17 13:18) Act Partial Throm Time (Ptt) (09/26/17 13:18) Sodium Chlorid 0.9%... W/Octreotide Inj (09/26/17 15:48) Sodium Chloride 0.9... W/Pantoprazole In (09/26/17 15:48) Sodium Chloride 0.9... W/Pantoprazole In (09/26/17 15:48) Red Blood Cells (Rbc) (09/26/17 15:48) Blood Product Administration (09/26/17 15:48) Sodium Chlor 0.9% 250 Ml Inj (Ns 250 Ml (09/26/17 16:00) Type And Screen (09/26/17 15:55) Admit Order (Ed Use Only) (09/26/17 17:53) Labs Laboratory Tests Test 09/26/17 15:07 09/26/17 15:55 White Blood Count 9.9 TH/MM3 Red Blood Count 3.09 MIL/MM3 Hemoglobin 8.8 GM/DL Hematocrit 25.6 % Mean Corpuscular Volume 83.0 FL Mean Corpuscular Hemoglobin 28.5 PG Mean Corpuscular Hemoglobin Concent 34.3 % Red Cell Distribution Width 14.3 % Platelet Count 383 TH/MM3 Mean Platelet Volume 6.5 FL Neutrophils (%) (Auto) 70.3 % Lymphocytes (%) (Auto) 16.7 % Monocytes (%) (Auto) 7.4 % Eosinophils (%) (Auto) 4.8 % Basophils (%) (Auto) 0.8 % Neutrophils # (Auto) 7.0 TH/MM3 Lymphocytes # (Auto) 1.7 TH/MM3 Monocytes # (Auto) 0.7 TH/MM3 Eosinophils # (Auto) 0.5 TH/MM3 Basophils # (Auto) 0.1 TH/MM3 CBC Comment DIFF FINAL Differential Comment Blood Urea Nitrogen 49 MG/DL Creatinine 1.71 MG/DL Random Glucose 119 MG/DL Total Protein 7.6 GM/DL Albumin 3.6 GM/DL Calcium Level 8.3 MG/DL Alkaline Phosphatase 107 U/L Aspartate Amino Transf (AST/SGOT) 28 U/L Alanine Aminotransferase (ALT/SGPT) 26 U/L Total Bilirubin 0.2 MG/DL Sodium Level 126 MEQ/L Potassium Level 3.4 MEQ/L Chloride Level 90 MEQ/L Carbon Dioxide Level 26.2 MEQ/L Anion Gap 10 MEQ/L Estimat Glomerular Filtration Rate 29 ML/MIN Lipase 309 U/L Prothrombin Time 9.5 SEC Prothromb Time International Ratio 0.9 RATIO Activated Partial Thromboplast Time 26.4 SEC MDM Medical Decision Making Medical Screen Exam Complete: Yes Emergency Medical Condition: Yes Differential Diagnosis Differential diagnoses include but are not limited to GI bleed, electrolyte abnormality, anemia Narrative Course Blood work sent from triage while patient waiting for bed placement. CBC, CMP, Lipase, PT/INR ordered and pending. CBC shows anemia with HBG 8.8 CMP shows hyponatremia at 126 PT 9.5, INR 0.9, APTT 26.4 Lipase 309 Patient states she feels unsafe to be discharged due to her fatigue, weakness and dyspnea on exertion. She lives at home with her and he reports fear the the patient might fall due to her weakness and he would not be able to pick out hand her. Patient will be admitted for observation for symptomatic anemia. Dr. Dunn returned call and accepted admission. Patient admitted for observation at this time. Diagnosis Primary Impression: Symptomatic anemia Admitting Information Admitting Physician Requests: Observation Ngoc Queen [facility] Sep 26, 2017 15:20
[2017-09-26 15:37] LABS: ALBUMIN 3.6 GM/DL (3.4-5.0); AST (GOT) 28 U/L (15-37); BICARBONATE 26.2 MEQ/L (21.0-32.0); BLOOD UREA NITROGEN 49 MG/DL (7-18); CALCIUM 8.3 MG/DL (8.5-10.1); CHLORIDE 90 MEQ/L (98-107); CREATININE 1.71 MG/DL (0.50-1.00); GLOMERULAR FILTRATION RATE 29 ML/MIN (>89); GLUCOSE,RANDOM 119 MG/DL (74-106); LIPASE 309 U/L (73-393); SODIUM (NA) 126 MEQ/L (136-145)
[2017-09-26 15:39] LABS: ALKALINE PHOSPHATASE 107 U/L (45-117); ALT (GPT) 26 U/L (10-53); TOTAL BILIRUBIN ADULT 0.2 MG/DL (0.2-1.0); TOTAL PROTEIN 7.6 GM/DL (6.4-8.2)
[2017-09-26] MEDS ORDERED: PANTOPRAZOLE INJ 80 MG in SODIUM CHLORIDE 0.9% INJ 35 ML IV ONE (15:48)
[2017-09-26 16:00] VITALS: BP 118/55; PULSE 75; RESP 14; O2SAT 97
[2017-09-26] MEDS ORDERED: SODIUM CHLOR 0.9% 250 ML INJ 250 ML IV ONE (16:00)
[2017-09-26] MEDS ORDERED: ROPI2TAB PO (16:09)
[2017-09-26] MEDS ORDERED: FURO20TA PO (16:09)
[2017-09-26] MEDS ORDERED: OCUVTAB4 PO (16:09)
[2017-09-26] MEDS ORDERED: AMLO5TAB2 PO (16:09)
[2017-09-26] MEDS ORDERED: CHLO25TA2 PO (16:09)
[2017-09-26 16:59] LABS: INTERNATIONAL NORMALIZED RATIO 0.9 RATIO; PROTHROMBIN TIME - PATIENT 9.5 SEC (9.8-11.6)
[2017-09-26] MEDS: PANTOPRAZOLE INJ 80 MG in SODIUM CHLORIDE 0.9% INJ 100 ML IV SCH (17:00)
[2017-09-26] MEDS ORDERED: SODIUM CHLOR 0.9% 1000 ML BAG IV ONE (17:57)
[2017-09-26 18:00] VITALS: BP 148/65; PULSE 81; RESP 20; O2SAT 97
--- NOTE | 2017-09-26 18:19 | PD ---
Data Data Last Documented VS Vital Signs Date Time Temp Pulse Resp B/P (MAP) Pulse Ox O2 Delivery O2 Flow Rate FiO2 09/26/17 16:00 75 14 118/55 (76) 97 Room Air 09/26/17 13:07 98.6 Orders Orders Complete Blood Count With Diff (09/26/17 13:18) Comprehensive Metabolic Panel (09/26/17 13:18) Lipase (09/26/17 13:18) Prothrombin Time / Inr (Pt) (09/26/17 13:18) Act Partial Throm Time (Ptt) (09/26/17 13:18) Sodium Chlorid 0.9%... W/Octreotide Inj (09/26/17 15:48) Sodium Chloride 0.9... W/Pantoprazole In (09/26/17 15:48) Sodium Chloride 0.9... W/Pantoprazole In (09/26/17 15:48) Red Blood Cells (Rbc) (09/26/17 15:48) Blood Product Administration (09/26/17 15:48) Sodium Chlor 0.9% 250 Ml Inj (Ns 250 Ml (09/26/17 16:00) Type And Screen (09/26/17 15:55) Admit Order (Ed Use Only) (09/26/17 17:53) Labs Laboratory Tests Test 09/26/17 15:07 09/26/17 15:55 White Blood Count 9.9 TH/MM3 Red Blood Count 3.09 MIL/MM3 Hemoglobin 8.8 GM/DL Hematocrit 25.6 % Mean Corpuscular Volume 83.0 FL Mean Corpuscular Hemoglobin 28.5 PG Mean Corpuscular Hemoglobin Concent 34.3 % Red Cell Distribution Width 14.3 % Platelet Count 383 TH/MM3 Mean Platelet Volume 6.5 FL Neutrophils (%) (Auto) 70.3 % Lymphocytes (%) (Auto) 16.7 % Monocytes (%) (Auto) 7.4 % Eosinophils (%) (Auto) 4.8 % Basophils (%) (Auto) 0.8 % Neutrophils # (Auto) 7.0 TH/MM3 Lymphocytes # (Auto) 1.7 TH/MM3 Monocytes # (Auto) 0.7 TH/MM3 Eosinophils # (Auto) 0.5 TH/MM3 Basophils # (Auto) 0.1 TH/MM3 CBC Comment DIFF FINAL Differential Comment Blood Urea Nitrogen 49 MG/DL Creatinine 1.71 MG/DL Random Glucose 119 MG/DL Total Protein 7.6 GM/DL Albumin 3.6 GM/DL Calcium Level 8.3 MG/DL Alkaline Phosphatase 107 U/L Aspartate Amino Transf (AST/SGOT) 28 U/L Alanine Aminotransferase (ALT/SGPT) 26 U/L Total Bilirubin 0.2 MG/DL Sodium Level 126 MEQ/L Potassium Level 3.4 MEQ/L Chloride Level 90 MEQ/L Carbon Dioxide Level 26.2 MEQ/L Anion Gap 10 MEQ/L Estimat Glomerular Filtration Rate 29 ML/MIN Lipase 309 U/L Prothrombin Time 9.5 SEC Prothromb Time International Ratio 0.9 RATIO Activated Partial Thromboplast Time 26.4 SEC MDM Medical Record Reviewed: Yes Supervised Visit with ADEBAYO: Yes Narrative Course I, Dr. Mcdowell, have reviewed the advance practice practitioner's documentation and am in agreement, met with the patient face to face, made the diagnosis, and the medical decision making was done by me. *My assessment and Findings: The patient arrives with black stool raising concern for upper GI bleed. Hemoglobin has dropped and she offers complaints consistent with symptomatic anemia not limited to the palpitation shortness of breath and generalized fatigue. Prior attempts to perform colonoscopy limited by patient anatomy. Admission for serial CBC and GI evaluation is advised on the scenario. Diagnosis Primary Impression: Symptomatic anemia Additional Impressions: Black tarry stools Weakness generalized Brady Mcdowell MD Sep 26, 2017 18:19
[2017-09-26] MEDS: OCTREOTIDE INJ 500 MCG in SODIUM CHLORID 0.9% 500 ML INJ 500 ML IV SCH (18:25)
[2017-09-26] MEDS ORDERED: ACETAMINOPHEN 325 MG TAB PO ONE (19:45)
[2017-09-26 20:15] VITALS: BP 132/74; PULSE 82; RESP 18; O2SAT 97
[2017-09-26] MEDS ORDERED: POTASSIUM CHLORIDE 8 MEQ CONTROLLED RELEASE TAB PO ONE (21:00)
[2017-09-26] MEDS ORDERED: NALOXONE HCL 0.4 MG/ML AMP IV PUSH PRN (21:00)
[2017-09-26] MEDS: traZODone HCL 50 MG TAB PO SCH (21:00)
[2017-09-26] MEDS ORDERED: ONDANSETRON HCL 4 MG/2 ML VIAL IVP PRN (21:00)
[2017-09-26] MEDS ORDERED: MAGNESIUM HYDROXIDE SUSP 30 ML CUP PO PRN (21:00)
[2017-09-26] MEDS ORDERED: BISACODYL 10 MG SUPP RECTAL PRN (21:00)
[2017-09-26] MEDS: SODIUM CHLORIDE 0.9% FLUSH 10 ML FLUSH IV FLUSH SCH (21:00)
[2017-09-26] MEDS ORDERED: LACTULOSE SYRUP 20 GM/30 ML CUP PO PRN (21:00)
[2017-09-26] MEDS: DOCUSATE SODIUM 50 MG/SENNA 8.6 MG TAB PO SCH (21:00)
[2017-09-26] MEDS ORDERED: PANTOPRAZOLE SODIUM 40 MG VIAL IV PUSH SCH (21:00)
[2017-09-26] MEDS ORDERED: SODIUM CHLORIDE 0.9% FLUSH 10 ML FLUSH IV FLUSH PRN (21:00)
[2017-09-26] MEDS ORDERED: SENNOSIDES 8.6 MG TAB PO PRN (21:00)
[2017-09-26] MEDS ORDERED: ALBUTEROL SULFATE 90 MCG/ACT HFA 8 GM INHALER INH PRN (21:00)
--- NOTE | 2017-09-26 21:11 | HHI.HP ---
HPI Service [facility] Hospitalists Primary Care Physician Kulwinder Lugo MD Admission Diagnosis symptomatic anemia Chief Complaint: light headed progressive weakness Travel History International Travel<30 Days: No Contact w/Intl Traveler <30 Da: No Traveled to Known Affected Are: No History of Present Illness 77-year old female presents emergency department for evaluation of her tarry stools 3 weeks. Patient states she has approximately 6-7 dark tarry stool daily. Patient states she feels lightheaded, dizzy and short of breath on exertion. Patient denies any nausea or vomiting at this time. Patient denies any fevers or chills. Patient denies any dysuria or hematuria. Patient's been evaluated by GI, Dr. Romero and colonoscopy was performed. When looking up the results of the colonoscopy Dr. Romero states he was unable to finish the colonoscopy due to technical difficulty. Patient denies any tobacco or alcohol use. Patient states has had twist in colon making colonoscopy difficult. In er found to have hgb at 8.8 and is sym[ptomatic as above was started on protonix drip and consult GI. Review of Systems Constitutional: COMPLAINS OF: Dizziness Gastrointestinal: COMPLAINS OF: Bloody stools Other weakness Past Family Social History Past Medical History Recurrent GI bleed,CVA 2014,cad diverticular disease,GERD sleep apnea, hypertension hyperlipidemia Past Surgical History gallbladder,hysterectomy stent rt renal artery cataracts Reported Medications Lopressor (Metoprolol Tartrate) 50 Mg Tab 75 Mg PO Q8HR 30 Days Trazodone (Trazodone HCl) 50 Mg Tab 50 Mg PO HS Reported Preservision Areds (Multiple Vitamins W/ Minerals) 1 Tab 1 Tab PO DAILY Ropinirole 2 Mg Tab Unknown Dose PO HS Furosemide 20 Mg Tab Unknown Dose PO BID Chlorthalidone 25 Mg Tab Unknown Dose PO DAILY Amlodipine (Amlodipine Besylate) 5 Mg Tab Unknown Dose PO DAILY Zolpidem (Zolpidem Tartrate) 10 Mg Tab 10 Mg PO HS PRN Ventolin Hfa 18 GM Inh (Albuterol Sulfate) 90 Mcg/Act Aer 2 Puff INH Q4-6H PRN Atorvastatin (Atorvastatin Calcium) 10 Mg Tab 10 Mg PO HS Cilostazol 50 Mg Tab 50 Mg PO BID Aspirin Low Dose (Aspirin) 81 Mg Chew 81 Mg CHEW DAILY D3 Super Strength (Cholecalciferol) 2,000 Unit Cap 2,000 Units Allergies: Coded Allergies: latex (Verified Allergy, Severe, REDNESS, SWELLING, 09/26/17) SITE REACTION- INTERMEDIATE REACTION niacin (Verified Allergy, Intermediate, Itching, 09/26/17) HIVES & REDNESS ; VERY NERVOUS ACTING; SEVERE REACTION Sulfa (Sulfonamide Antibiotics) (Verified Allergy, Unknown, HIVES, ) MILD REACTION penicillin G (Verified Allergy, Unknown, HIVES, 09/26/17) SEVERE REACTION - HIVES INCREASE IN HEART RATE; DIFFICULT BREATHING Social History NS,ND Physical Exam Vital Signs Vital Signs Date Time Temp Pulse Resp B/P (MAP) Pulse Ox O2 Delivery O2 Flow Rate FiO2 09/26/17 18:00 81 20 148/65 (92) 97 Room Air 09/26/17 16:00 75 14 118/55 (76) 97 Room Air 09/26/17 13:07 98.6 88 16 149/68 (95) 98 Room Air Physical Exam GENERAL: This is a well-nourished, well-developed patient, in no apparent distress. SKIN: No rashes, ecchymoses or lesions. Cool and dry. HEAD: Atraumatic. Normocephalic. No temporal or scalp tenderness. EYES: Pupils equal round and reactive. Extraocular motions intact. No scleral icterus. No injection or drainage. ENT: Nose without bleeding, purulent drainage or septal hematoma. Throat without erythema, tonsillar hypertrophy or exudate. Uvula midline. Airway patent. NECK: Trachea midline. No JVD or lymphadenopathy. Supple, nontender, no meningeal signs. CARDIOVASCULAR: Regular rate and rhythm without murmurs, gallops, or rubs. RESPIRATORY: Clear to auscultation. Breath sounds equal bilaterally. No wheezes , rales, or rhonchi. GASTROINTESTINAL: Abdomen soft, non-tender, nondistended. No hepato-splenomegaly , or palpable masses. No guarding. MUSCULOSKELETAL: Extremities without clubbing, cyanosis, or edema. No joint tenderness, effusion, or edema noted. No calf tenderness. Negative Homans sign bilaterally. NEUROLOGICAL: Awake and alert. Cranial nerves II through XII intact. Motor and sensory grossly within normal limits. Five out of 5 muscle strength in all muscle groups. Normal speech. Laboratory Laboratory Tests Test 09/26/17 15:07 09/26/17 15:55 White Blood Count 9.9 Red Blood Count 3.09 Hemoglobin 8.8 Hematocrit 25.6 Mean Corpuscular Volume 83.0 Mean Corpuscular Hemoglobin 28.5 Mean Corpuscular Hemoglobin Concent 34.3 Red Cell Distribution Width 14.3 Platelet Count 383 Mean Platelet Volume 6.5 Neutrophils (%) (Auto) 70.3 Lymphocytes (%) (Auto) 16.7 Monocytes (%) (Auto) 7.4 Eosinophils (%) (Auto) 4.8 Basophils (%) (Auto) 0.8 Neutrophils # (Auto) 7.0 Lymphocytes # (Auto) 1.7 Monocytes # (Auto) 0.7 Eosinophils # (Auto) 0.5 Basophils # (Auto) 0.1 CBC Comment DIFF FINAL Differential Comment Blood Urea Nitrogen 49 Creatinine 1.71 Random Glucose 119 Total Protein 7.6 Albumin 3.6 Calcium Level 8.3 Alkaline Phosphatase 107 Aspartate Amino Transf (AST/SGOT) 28 Alanine Aminotransferase (ALT/SGPT) 26 Total Bilirubin 0.2 Sodium Level 126 Potassium Level 3.4 Chloride Level 90 Carbon Dioxide Level 26.2 Anion Gap 10 Estimat Glomerular Filtration Rate 29 Lipase 309 Prothrombin Time 9.5 Prothromb Time International Ratio 0.9 Activated Partial Thromboplast Time 26.4 Result Diagram: 09/26/17 1507 09/26/17 1507 Course in er started on protonix drip Caprini VTE Risk Assessment Caprini VTE Risk Assessment: Mod/High Risk (score >= 2) Caprini Risk Assessment Model Point Value = 1 Point Value = 2 Point Value = 3 Point Value = 5 Age 41-60 Minor surgery BMI > 25 kg/m2 Swollen legs Varicose veins or History of unexplained or recurrent spontaneous Oral contraceptives or hormone replacement Sepsis (< 1 month) Serious lung disease, including pneumonia (< 1 month) Abnormal pulmonary function Acute myocardial infarction Congestive heart failure (< 1 month) History of inflammatory bowel disease Medical patient at bed rest Age 61-74 Arthroscopic surgery Major open surgery (> 45 min) Laparoscopic surgery (> 45 min) Malignancy Confined to bed (> 72 hours) Immobilizing plaster cast Central venous access Age >= 75 History of VTE Family history of VTE Factor V Leiden Prothrombin [id number] Lupus anticoagulant Anticardiolipin antibodies Elevated serum homocysteine Heparin-induced thrombocytopenia Other congenital or acquired thrombophilia Stroke (< 1 month) Elective arthroplasty Hip, pelvis, or leg fracture Acute spinal cord injury (< 1 month) Prophylaxis Regimen Total Risk Factor Score Risk Level Prophylaxis Regimen 0-1 Low Early ambulation 2 Moderate Order ONE of the following: *Sequential Compression Device (SCD) *Heparin 5000 units SQ BID 3-4 Higher Order ONE of the following medications: *Heparin 5000 units SQ TID *Enoxaparin/Lovenox 40 mg SQ daily (WT < 150 kg, CrCl > 30 mL/min) *Enoxaparin/Lovenox 30 mg SQ daily (WT < 150 kg, CrCl > 10-29 mL/min) *Enoxaparin/Lovenox 30 mg SQ BID (WT < 150 kg, CrCl > 30 mL/min) AND/OR *Sequential Compression Device (SCD) 5 or more Highest Order ONE of the following medications: *Heparin 5000 units SQ TID (Preferred with Epidurals) *Enoxaparin/Lovenox 40 mg SQ daily (WT < 150 kg, CrCl > 30 mL/min) *Enoxaparin/Lovenox 30 mg SQ daily (WT < 150 kg, CrCl > 10-29 mL/min) *Enoxaparin/Lovenox 30 mg SQ BID (WT < 150 kg, CrCl > 30 mL/min) AND *Sequential Compression Device (SCD) Assessment and Plan Problem List: (1) Symptomatic anemia ICD Codes: D64.9 - Anemia, unspecified Status: Acute Plan: will recheck cbc in am consult gi (2) Black tarry stools ICD Codes: K92.1 - Melena Plan: protonix drip consult gi follow cbc (3) Hyponatremia ICD Codes: E87.1 - Hypo-osmolality and hyponatremia Plan: baseline in 130 range will give some fluid recheck labs (4) HTN (hypertension), benign ICD Codes: I10 - Benign hypertension Status: Chronic Plan: continue home meds Assessment and Plan further plan as case develops Code Status full Discussed Condition With patient Bret Dunn MD Sep 26, 2017 21:11
[2017-09-26] MEDS: SODIUM CHLOR 0.9% 1000 ML INJ 1,000 ML IV SCH (21:15)
[2017-09-26] MEDS: CILOSTAZOL 50 MG TAB PO SCH (22:31)
[2017-09-26] MEDS: ATORVASTATIN 10 MG TAB PO SCH (22:33)
[2017-09-26] MEDS: METOPROLOL TARTRATE 50 MG TAB PO SCH (22:34)
[2017-09-26] MEDS: ZOLPIDEM TARTRATE 10 MG TAB PO PRN (23:02)
[2017-09-27] VITALS (8 sets, daily range): BP systolic 116–162; BP diastolic 56–68; PULSE 72–83; RESP 18–22; TEMP 97–98.5; O2SAT 94–99
[2017-09-27] MEDS: PANTOPRAZOLE INJ 80 MG in SODIUM CHLORIDE 0.9% INJ 100 ML IV SCH ×3 (01:48→21:48)
[2017-09-27] MEDS: OCTREOTIDE INJ 500 MCG in SODIUM CHLORID 0.9% 500 ML INJ 500 ML IV SCH ×3 (01:49→21:51)
[2017-09-27] MEDS: METOPROLOL TARTRATE 50 MG TAB PO SCH ×3 (06:54→21:56)
--- NOTE | 2017-09-27 08:24 | HHI.PR ---
Subjective Remarks Pt reports that she has continued to have soft to loose black stools since her last hospitalization, around 4-5 per day She denies any abd pain, nausea/vomiting, reflux or dysphagia She has been eating and drinking without difficulty Pt has had increased generalized weakness She was suppose to see Dr. Romero as an outpt yesterday but felt too weak to go to the appt and instead came to the ED for evaluation. Pts labs in the ED noted Hgb 8.8/Hct 25.6 Objective Vitals Vital Signs Date Time Temp Pulse Resp B/P (MAP) Pulse Ox O2 Delivery O2 Flow Rate FiO2 09/27/17 07:40 97.6 77 20 140/62 (88) 97 09/27/17 04:01 97.9 72 18 116/56 (76) 97 09/27/17 00:08 97.9 72 18 122/57 (78) 95 09/26/17 21:16 09/26/17 20:15 82 18 132/74 (93) 97 Room Air 09/26/17 18:00 81 20 148/65 (92) 97 Room Air 09/26/17 16:00 75 14 118/55 (76) 97 Room Air 09/26/17 13:07 98.6 88 16 149/68 (95) 98 Room Air Result Diagram: 09/26/17 1507 09/26/17 1507 Other Results Laboratory Tests Test 09/26/17 15:07 09/26/17 15:55 White Blood Count 9.9 TH/MM3 Red Blood Count 3.09 MIL/MM3 Hemoglobin 8.8 GM/DL Hematocrit 25.6 % Mean Corpuscular Volume 83.0 FL Mean Corpuscular Hemoglobin 28.5 PG Mean Corpuscular Hemoglobin Concent 34.3 % Red Cell Distribution Width 14.3 % Platelet Count 383 TH/MM3 Mean Platelet Volume 6.5 FL Neutrophils (%) (Auto) 70.3 % Lymphocytes (%) (Auto) 16.7 % Monocytes (%) (Auto) 7.4 % Eosinophils (%) (Auto) 4.8 % Basophils (%) (Auto) 0.8 % Neutrophils # (Auto) 7.0 TH/MM3 Lymphocytes # (Auto) 1.7 TH/MM3 Monocytes # (Auto) 0.7 TH/MM3 Eosinophils # (Auto) 0.5 TH/MM3 Basophils # (Auto) 0.1 TH/MM3 CBC Comment DIFF FINAL Differential Comment Blood Urea Nitrogen 49 MG/DL Creatinine 1.71 MG/DL Random Glucose 119 MG/DL Total Protein 7.6 GM/DL Albumin 3.6 GM/DL Calcium Level 8.3 MG/DL Alkaline Phosphatase 107 U/L Aspartate Amino Transf (AST/SGOT) 28 U/L Alanine Aminotransferase (ALT/SGPT) 26 U/L Total Bilirubin 0.2 MG/DL Sodium Level 126 MEQ/L Potassium Level 3.4 MEQ/L Chloride Level 90 MEQ/L Carbon Dioxide Level 26.2 MEQ/L Anion Gap 10 MEQ/L Estimat Glomerular Filtration Rate 29 ML/MIN Lipase 309 U/L Prothrombin Time 9.5 SEC Prothromb Time International Ratio 0.9 RATIO Activated Partial Thromboplast Time 26.4 SEC Objective Remarks General: NAD, AAOx3 Chest: CTA Cardiac: Regular Abd: +BS, soft ND/NT Ext: No edema A/P Problem List: (1) Symptomatic anemia ICD Codes: D64.9 - Anemia, unspecified Status: Chronic Plan: Pt is a 77-year-old female with CAD, hypertension and peripheral arterial disease who presented to the ED with generalized weakness and continued melanotic stools. 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 She was scheduled to see Dr. Romero on 09/26 but instead reported to the the ED due to increased generalized weakness. - Labs at admission with Hgb 8.8/hct 25.6 which is decreased from her labs at discharge on 09/11. - Pt has one unit of PRBCs ordered but not transfused yet. - GI is consulted. - Pt was started on Protonix gtt and Octreotide gtt at admission - Await Repeat H/H this morning GERD - Cont. PPI Hyponatremia - Labs slightly lower than baseline. - Pt was given some IVF overnight - Awaiting repeat labs for today CKD, stage 3 - Labs are fairly stable - Elevated BUN likely secondary to GI bleed - monitor I/O, renal indices HTN - BP has been fluctuating - Pt was continued on Metoprolol, Norvasc, and Lasix at admission - Monitor CAD - No symptoms. - Pt continued on cilostazol at admission (2) Black tarry stools ICD Codes: K92.1 - Melena Plan: - See above (3) Hyponatremia ICD Codes: E87.1 - Hypo-osmolality and hyponatremia Plan: - See above (4) HTN (hypertension), benign ICD Codes: I10 - Benign hypertension Status: Chronic Plan: - See above Assessment and Plan Patient examined. Assessment and plan formulated with Trice Coyle PA-C. I agree with the above. recurrent ugib. symptomatic blood loss anemia. recent avm noted in duodenum. hypovolemic hyponatremia egd today. blood ns ivf. recheck na. Trice Coyle Sep 27, 2017 08:24 Justen Mckenzie MD Sep 27, 2017 13:17
[2017-09-27 08:29] LABS: AUTOMATED NEUTROPHIL # 4.3 TH/MM3 (1.8-7.7); BASOPHIL % 0.5 % (0.0-2.0); EOSINOPHIL # 0.7 TH/MM3 (0-0.4); EOSINOPHIL % 9.8 % (0.0-4.0); HEMOGLOBIN 7.4 GM/DL (11.6-15.3); LYMPH % 19.9 % (9.0-44.0); LYMPHOCYTE # 1.4 TH/MM3 (1.0-4.8); MEAN CORPUSCULAR HEMOGLOBIN 27.8 PG (27.0-34.0); MEAN CORPUSCULAR HGB CONC 33.5 % (32.0-36.0); MEAN PLATELET VOLUME 6.6 FL (7.0-11.0); MONO % 7.7 % (0.0-8.0); MONOCYTE # 0.5 TH/MM3 (0-0.9); NEUT % 62.1 % (16.0-70.0); PLATELET COUNT 311 TH/MM3 (150-450); RED BLOOD COUNT 2.66 MIL/MM3 (4.00-5.30); RED CELL DISTRIBUTION WIDTH 14.4 % (11.6-17.2); WHITE BLOOD COUNT 6.9 TH/MM3 (4.0-11.0)
[2017-09-27] MEDS: CILOSTAZOL 50 MG TAB PO SCH ×2 (09:00→21:56)
[2017-09-27] MEDS: SODIUM CHLORIDE 0.9% FLUSH 10 ML FLUSH IV FLUSH SCH ×2 (09:00→21:00)
[2017-09-27] MEDS: DOCUSATE SODIUM 50 MG/SENNA 8.6 MG TAB PO SCH ×2 (09:00→21:00)
[2017-09-27 09:03] LABS: BICARBONATE 25.4 MEQ/L (21.0-32.0); CREATININE 1.62 MG/DL (0.50-1.00)
[2017-09-27] MEDS: SODIUM CHLOR 0.9% 1000 ML INJ 1,000 ML IV SCH ×2 (09:10→21:05)
--- NOTE | 2017-09-27 09:23 | PD.CONS ---
HPI History of Present Illness This is a 77 year old female with hx of AVM presents emergency department for evaluation of her tarry stools 3 weeks. Patient states she has approximately 6 -7 dark loose tarry stool daily, last BM was yesterdays, hgb today is 7.4. Patient has been feeling lightheaded, dizzy with shortness of breath on exertion. Patient denies nausea, vomiting, hematemesis, abd pain, or hematochezia at this time. Patient was evaluated by our GI services earlier this month for same presentation, EGD/colonoscopy on 09/10/[address] Romero ---> incomplete colonoscopy, the scope was only advanced to the hepatic flexure due to technical difficulty apart from diverticulosis colonic mucosa was unremarkable within normal limits there was kind of a kink or tortuosity in the sigmoid played to this limitation of colonoscopy. EGD showed hiatal hernia, gastritis, duodenal AVM s/p cauterization, BX benign. Patient was advised to f/ u as an OP and recommended to have CE, however patient hasn't done that yet. Patient denies any tobacco or alcohol use or NSAIDs. Currently pt is asymptomatic and was started on Protonix drip. (Waldemar Iniguez) PFSH Past Medical History Recurrent GI bleed,CVA 2014,cad diverticular disease,GERD sleep apnea, hypertension hyperlipidemia Past Surgical History gallbladder,hysterectomy stent rt renal artery cataracts (Waldemar Iniguez) Coded Allergies: latex (Verified Allergy, Severe, REDNESS, SWELLING, 09/26/17) SITE REACTION- INTERMEDIATE REACTION niacin (Verified Allergy, Intermediate, Itching, 09/26/17) HIVES & REDNESS ; VERY NERVOUS ACTING; SEVERE REACTION Sulfa (Sulfonamide Antibiotics) (Verified Allergy, Unknown, HIVES, ) MILD REACTION penicillin G (Verified Allergy, Unknown, HIVES, 09/26/17) SEVERE REACTION - HIVES INCREASE IN HEART RATE; DIFFICULT BREATHING Medications Current Medications Medications (Trade) Dose Ordered Sig/Deneen Route Start Time Stop Time Status Last Admin Octreotide Acetate 500 mcg/ Sodium Chloride 500.5 ml @ 50 mls/hr Q10H1M IV 09/26/17 15:48 09/27/17 01:49 Pantoprazole Sodium 80 mg/ Sodium Chloride 100 ml @ 10 mls/hr Q10H IV 09/26/17 15:48 09/27/17 01:48 (NS Flush) 2 ml UNSCH PRN IV FLUSH 09/26/17 21:00 (NS Flush) 2 ml BID IV FLUSH 09/26/17 21:00 (Tylenol) 650 mg Q4H PRN PO 09/26/17 21:00 (Zofran Inj) 4 mg Q6H PRN IVP 09/26/17 21:00 (Narcan Inj) 0.4 mg UNSCH PRN IV PUSH 09/26/17 21:00 (Myriam-Colace) 1 tab BID PO 09/26/17 21:00 (Milk Of Magnesia Liq) 30 ml Q12H PRN PO 09/26/17 21:00 (Senokot) 17.2 mg Q12H PRN PO 09/26/17 21:00 (Dulcolax Supp) 10 mg DAILY PRN RECTAL 09/26/17 21:00 (Lactulose Liq) 30 ml DAILY PRN PO 09/26/17 21:00 (Proair Hfa Inh) 2 puff BID PRN INH 09/26/17 21:00 (Lipitor) 10 mg HS PO 09/26/17 21:00 09/26/17 22:33 (Pletal) 50 mg BID PO 09/26/17 21:00 09/26/17 22:31 (Lopressor) 75 mg Q8HR PO 09/26/17 22:00 09/27/17 06:54 (Desyrel) 50 mg HS PO 09/26/17 21:00 (Ambien) 10 mg HS PRN PO 09/26/17 21:00 09/26/17 23:02 (Lasix) 20 mg DAILY PO 09/27/17 09:00 (Requip) 2 mg HS PO 09/26/17 21:00 09/26/17 22:33 (Norvasc) 5 mg DAILY PO 09/27/17 09:00 Sodium Chloride 1,000 ml @ 84 mls/hr [id number] IV 09/26/17 21:15 Family History No family hx of colon cancer Social History No alcohol No smoking No illicit drug use (Waldemar Iniguez) Review of Systems Constitutional: COMPLAINS OF: Fatigue, Dizziness Endocrine: DENIES: Polyuria Eyes: DENIES: Double Vision Ears, nose, mouth, throat: DENIES: Hoarseness Respiratory: COMPLAINS OF: Shortness of breath Cardiovascular: DENIES: Lower Extremity Edema Gastrointestinal: COMPLAINS OF: Black stools, DENIES: Abdominal pain, Bloody stools, Constipation, Nausea, Vomiting, Anorexia, Odynophagia, Swelling of Abdomen, Heartburn, Hematemesis Genitourinary: DENIES: Hematuria Integumentary: DENIES: Jaundice Hematologic/lymphatic: DENIES: Bruising Immunologic/allergic: DENIES: Eczema Neurologic: DENIES: Abnormal gait Psychiatric: DENIES: Anxiety (Waldemar Iniguez) GI Exam Vitals I&O Vital Signs Date Time Temp Pulse Resp B/P (MAP) Pulse Ox O2 Delivery O2 Flow Rate FiO2 09/27/17 07:40 97.6 77 20 140/62 (88) 97 09/27/17 04:01 97.9 72 18 116/56 (76) 97 09/27/17 00:08 97.9 72 18 122/57 (78) 95 09/26/17 21:16 09/26/17 20:15 82 18 132/74 (93) 97 Room Air 09/26/17 18:00 81 20 148/65 (92) 97 Room Air 09/26/17 16:00 75 14 118/55 (76) 97 Room Air 09/26/17 13:07 98.6 88 16 149/68 (95) 98 Room Air I/O 09/26/17 09/26/17 09/26/17 09/27/17 09/27/17 09/27/17 07:00 15:00 23:00 07:00 15:00 23:00 Intake Total 35 ml Balance 35 ml Intake IV Total 35 ml # Voids 1 3 Laboratory Test 09/26/17 15:07 09/26/17 15:55 09/27/17 07:55 White Blood Count 9.9 TH/MM3 6.9 TH/MM3 Red Blood Count 3.09 MIL/MM3 2.66 MIL/MM3 Hemoglobin 8.8 GM/DL 7.4 GM/DL Hematocrit 25.6 % 22.0 % Mean Corpuscular Volume 83.0 FL 83.0 FL Mean Corpuscular Hemoglobin 28.5 PG 27.8 PG Mean Corpuscular Hemoglobin Concent 34.3 % 33.5 % Red Cell Distribution Width 14.3 % 14.4 % Platelet Count 383 TH/MM3 311 TH/MM3 Mean Platelet Volume 6.5 FL 6.6 FL Neutrophils (%) (Auto) 70.3 % 62.1 % Lymphocytes (%) (Auto) 16.7 % 19.9 % Monocytes (%) (Auto) 7.4 % 7.7 % Eosinophils (%) (Auto) 4.8 % 9.8 % Basophils (%) (Auto) 0.8 % 0.5 % Neutrophils # (Auto) 7.0 TH/MM3 4.3 TH/MM3 Lymphocytes # (Auto) 1.7 TH/MM3 1.4 TH/MM3 Monocytes # (Auto) 0.7 TH/MM3 0.5 TH/MM3 Eosinophils # (Auto) 0.5 TH/MM3 0.7 TH/MM3 Basophils # (Auto) 0.1 TH/MM3 0.0 TH/MM3 CBC Comment DIFF FINAL DIFF FINAL Differential Comment Blood Urea Nitrogen 49 MG/DL 38 MG/DL Creatinine 1.71 MG/DL 1.62 MG/DL Random Glucose 119 MG/DL 124 MG/DL Total Protein 7.6 GM/DL Albumin 3.6 GM/DL Calcium Level 8.3 MG/DL 8.0 MG/DL Alkaline Phosphatase 107 U/L Aspartate Amino Transf (AST/SGOT) 28 U/L Alanine Aminotransferase (ALT/SGPT) 26 U/L Total Bilirubin 0.2 MG/DL Sodium Level 126 MEQ/L 129 MEQ/L Potassium Level 3.4 MEQ/L 3.8 MEQ/L Chloride Level 90 MEQ/L 94 MEQ/L Carbon Dioxide Level 26.2 MEQ/L 25.4 MEQ/L Anion Gap 10 MEQ/L 10 MEQ/L Estimat Glomerular Filtration Rate 29 ML/MIN 31 ML/MIN Lipase 309 U/L Prothrombin Time 9.5 SEC Prothromb Time International Ratio 0.9 RATIO Activated Partial Thromboplast Time 26.4 SEC Physical Examination HEENT: normocephalic; atraumatic; no jaundice. NECK: Neck is supple, no JVD, no lymphadenopathy. CHEST: Chest is clear to auscultation and percussion. CARDIAC: Regular rate and rhythm with no murmur gallop or rubs. ABDOMEN: Soft, nondistended, nontender; no hepatosplenomegaly; bowel sounds are present in all four quadrants. EXTREMITIES: No clubbing, cyanosis, or edema. SKIN: Normal; no rash; no jaundice. [employer]: No focal deficits; alert and oriented times three. (Waldemar Iniguez) Assessment and Plan Plan - tarry stools 3 weeks- Patient states she has approximately 6-7 dark loose tarry stool daily, last BM was yesterdays, hgb today is 7.4.Currently pt is asymptomatic and was started on Protonix drip.Patient was evaluated by our GI services earlier this month for same presentation, EGD/colonoscopy on with Dr. Romero ---> incomplete colonoscopy, the scope was only advanced to the hepatic flexure due to technical difficulty apart from diverticulosis colonic mucosa was unremarkable within normal limits there was kind of a kink or tortuosity in the sigmoid played to this limitation of colonoscopy. EGD showed hiatal hernia, gastritis, duodenal AVM s/p cauterization, BX benign. Patient was advised to f/u as an OP and recommended to have CE, however patient hasn't done that yet. - ASHTYN- due to above - Anemia- Due to acute GI bleed - HTN per attending Plan: - NPO - EGD today - Obtain consents - Cont. PPI drip - Monitor hh - Transfuse as needed - Patient seen and examined by Dr. Vitale and myself and this note is written on his behalf (Waldemar Iniguez) Physician Comments Plan as above, will schedule EGD today. further recommendations afterward. (Beth Vitale MD) Waldemar Iniguez Sep 27, 2017 09:23 Beth Vitale MD Sep 27, 2017 10:39
[2017-09-27] MEDS: amLODIPine BESYLATE 5 MG TAB PO SCH (10:04)
[2017-09-27] MEDS: FUROSEMIDE 20 MG TAB PO SCH (10:04)
[2017-09-27] MEDS ORDERED: LIDOCAINE HCL 1% PF 5 ML SYRINGE OTHER ONE (12:00)
[2017-09-27] MEDS ORDERED: PHENYLEPH/NS 1000 MCG/10 ML SYR IV ONE (12:00)
[2017-09-27] MEDS ORDERED: SUCCINYLCHOLINE CHLORIDE 100 MG/5 ML SYRINGE IV PUSH ONE (12:00)
[2017-09-27] MEDS ORDERED: DEXAMETHASONE SOD PHOS 4 MG/ML VIAL IV ONE (12:00)
[2017-09-27] MEDS ORDERED: ONDANSETRON HCL 4 MG/2 ML VIAL IV PUSH ONE (12:00)
[2017-09-27] MEDS ORDERED: PROPOFOL 200 MG/20 ML AMP IV ONE (12:00)
[2017-09-27] MEDS ORDERED: POVIDONE IODINE 5% (ANTISEPSIS KIT) 4 APPLICATIONS EACH NARE PRN (12:15)
[2017-09-27] MEDS ORDERED: CHLORHEXIDINE GLUCONATE 2 % 1 PACK (2 CLOTHS) TOPICAL PRN (12:15)
[2017-09-27] MEDS ORDERED: METOPROLOL TARTRATE 25 MG TAB PO PRN (12:15)
[2017-09-27] MEDS ORDERED: LACTATED RINGER'S 1000 ML IV PRN (12:15)
[2017-09-27] MEDS ORDERED: INSULIN HUMAN REGULAR 1,000 UNITS/10 ML VIAL SQ PRN (12:15)
[2017-09-27] MEDS ORDERED: SODIUM CHLORID 0.9% 500 ML IV PRN (12:15)
--- NOTE | 2017-09-27 17:30 | GIPROC ---
[facility] [address] [facility]. [facility], [address] EGD PROCEDURE REPORT EXAM DATE: 09/27/2017 PATIENT NAME: Silvia Purdy MR #: [id number] BIRTHDATE: 1940 ATTENDING: Beth Vitale MD ORDER #: [id number] RECREATION LEADER: Baylee Caldwell and Thierry Viramontes STATUS: inpatient INDICATIONS: The patient is a 77 yr old female here for an EGD due to melena PROCEDURE PERFORMED: EGD w/ biopsy MEDICATIONS: None and Per Anesthesia. TOPICAL ANESTHETIC: none CONSENT: The patient understands the risks and benefits of the procedure and understands that these risks include, but are not limited to: sedation, allergic reaction, infection, perforation and/or bleeding. Alternative means of evaluation and treatment include, among others: physical exam, x-rays, and/or surgical intervention. The patient elects to proceed with this endoscopic procedure. medical equipment was checked for proper function. Hand hygiene and appropriate measures for infection prevention was taken. After the risks, benefits and alternatives of the procedure were thoroughly explained, Informed consent was verified, confirmed and timeout was successfully executed by the treatment team. The patient was anesthetized with topical anesthesia and the Pentax EG-[id number] endoscope was introduced through the mouth and advanced to the second portion of the duodenum. Retroflexion was performed and was normal The gastroscope was then slowly withdrawn and removed. ESOPHAGUS: The esophagus was otherwise normal. STOMACH: There was moderate and erosive gastritis in the gastric antrum. Multiple biopsies were performed using cold forceps. Sample sent for histology. DUODENUM: The duodenal mucosa appeared normal in the bulb and second portion of the duodenum. ADVERSE EVENTS: There were no complications. IMPRESSIONS: 1. The esophagus was otherwise normal 2. There was gastritis in the gastric antrum; multiple biopsies were performed 3. Normal duodenal mucosa in the bulb and second portion of the duodenum 4. Retroflexion was performed and was normal RECOMMENDATIONS: 1. Await biopsy results. Biopsy results will not be ready for 7-10 days. If you don't hear from us in two weeks, call our office for biopsy results. 2. Continue PPI 3. Hematocrit PATIENT CONDITION: stable DISPOSITION: Observation REPEAT EXAM: NONE Beth Vitale MD eSigned: Beth Vitale MD 09/27/2017 5:29 PM cc: PATIENT NAME: GurwinderSilvia MR#: [id number]
[2017-09-27] MEDS ORDERED: DO NOT ADM ANY ANTICOAGULANT DRUGS PRN (18:15)
[2017-09-27] MEDS: traZODone HCL 50 MG TAB PO SCH (21:00)
[2017-09-27] MEDS: ZOLPIDEM TARTRATE 10 MG TAB PO PRN (21:56)
[2017-09-27] MEDS: ATORVASTATIN 10 MG TAB PO SCH (21:56)
--- NOTE | 2017-09-27 22:18 | EKG ---
Date Performed: 09/27/2017 Time Performed: 11:59:32 PTAGE: 77 years EKG: Sinus rhythm RIGHT BUNDLE BRANCH BLOCK ABNORMAL ECG PREVIOUS TRACING : 09/10/2017 06.32 Compared to prior tracing no significant change DOCTOR: Jacques Mcdowell Interpretating Date/Time 09/27/2017 22:17:28
[2017-09-28 03:32] VITALS: BP 155/68; PULSE 82; RESP 18; TEMP 97.9; O2SAT 18; O2SAT 95
[2017-09-28] MEDS: METOPROLOL TARTRATE 50 MG TAB PO SCH ×3 (06:00→22:04)
--- NOTE | 2017-09-28 07:52 | HHI.PR ---
Subjective Remarks Pt had one small melanotic stool this morning. She is tolerating liquid diet Pt wants to go home today Objective Vitals Vital Signs Date Time Temp Pulse Resp B/P (MAP) Pulse Ox O2 Delivery O2 Flow Rate FiO2 09/28/17 03:32 97.9 82 18 155/68 (97) 95 09/27/17 20:41 98.1 83 18 151/67 (95) 94 09/27/17 17:54 80 17 135/63 (87) 94 Room Air 09/27/17 17:38 98.2 82 17 137/62 (87) 97 Room Air 09/27/17 15:40 98.1 79 22 162/68 (99) 99 09/27/17 14:18 98.5 76 20 131/58 09/27/17 13:06 97.0 75 20 134/64 09/27/17 12:04 98.5 75 20 134/64 (87) 98 Result Diagram: 09/27/17 0755 09/27/17 0755 Other Results Laboratory Tests Test 09/26/17 15:07 09/26/17 15:55 09/27/17 07:55 White Blood Count 9.9 TH/MM3 6.9 TH/MM3 Red Blood Count 3.09 MIL/MM3 2.66 MIL/MM3 Hemoglobin 8.8 GM/DL 7.4 GM/DL Hematocrit 25.6 % 22.0 % Mean Corpuscular Volume 83.0 FL 83.0 FL Mean Corpuscular Hemoglobin 28.5 PG 27.8 PG Mean Corpuscular Hemoglobin Concent 34.3 % 33.5 % Red Cell Distribution Width 14.3 % 14.4 % Platelet Count 383 TH/MM3 311 TH/MM3 Mean Platelet Volume 6.5 FL 6.6 FL Neutrophils (%) (Auto) 70.3 % 62.1 % Lymphocytes (%) (Auto) 16.7 % 19.9 % Monocytes (%) (Auto) 7.4 % 7.7 % Eosinophils (%) (Auto) 4.8 % 9.8 % Basophils (%) (Auto) 0.8 % 0.5 % Neutrophils # (Auto) 7.0 TH/MM3 4.3 TH/MM3 Lymphocytes # (Auto) 1.7 TH/MM3 1.4 TH/MM3 Monocytes # (Auto) 0.7 TH/MM3 0.5 TH/MM3 Eosinophils # (Auto) 0.5 TH/MM3 0.7 TH/MM3 Basophils # (Auto) 0.1 TH/MM3 0.0 TH/MM3 CBC Comment DIFF FINAL DIFF FINAL Differential Comment Blood Urea Nitrogen 49 MG/DL 38 MG/DL Creatinine 1.71 MG/DL 1.62 MG/DL Random Glucose 119 MG/DL 124 MG/DL Total Protein 7.6 GM/DL Albumin 3.6 GM/DL Calcium Level 8.3 MG/DL 8.0 MG/DL Alkaline Phosphatase 107 U/L Aspartate Amino Transf (AST/SGOT) 28 U/L Alanine Aminotransferase (ALT/SGPT) 26 U/L Total Bilirubin 0.2 MG/DL Sodium Level 126 MEQ/L 129 MEQ/L Potassium Level 3.4 MEQ/L 3.8 MEQ/L Chloride Level 90 MEQ/L 94 MEQ/L Carbon Dioxide Level 26.2 MEQ/L 25.4 MEQ/L Anion Gap 10 MEQ/L 10 MEQ/L Estimat Glomerular Filtration Rate 29 ML/MIN 31 ML/MIN Lipase 309 U/L Prothrombin Time 9.5 SEC Prothromb Time International Ratio 0.9 RATIO Activated Partial Thromboplast Time 26.4 SEC Objective Remarks General: NAD, AAOx3 Chest: CTA Cardiac: Regular Abd: +BS, soft ND/NT Ext: No edema A/P Problem List: (1) Symptomatic anemia ICD Codes: D64.9 - Anemia, unspecified Status: Chronic Plan: Pt is a 77-year-old female with CAD, hypertension and peripheral arterial disease who presented to the ED with generalized weakness and continued melanotic stools. 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 She was scheduled to see Dr. Romero on 09/26 but instead reported to the the ED due to increased generalized weakness. - Labs at admission with Hgb 8.8/hct 25.6 which is decreased from her labs at discharge on 09/11. - Pt has one unit of PRBCs ordered but not transfused yet. - GI is following - Pt was started on Protonix gtt and Octreotide gtt at admission - EGD on 09/27/17 reported as gastritis but I do not have the official report at this time. - Stop Protonix and octreotide gtt - Protonix 40mg po daily - Await Repeat H/H this morning - Pt is anxious for discharge. Discussed with her that we will need to touch base with GI to see if there are any further inpatient testing that they would like done and we need her repeat labs done this morning. She would like to do any further testing as an outpt. - Will re-evaluate the pt this afternoon and hopefully we will have repeat labs done this afternoon. - I spoke with Dr. Vitale today and he would like the pt to stay another night and get repeat labs done in the morning. If she continues to have melanotic stools or if her H/H drops again he is recommending a repeat colonoscopy GERD - Cont. PPI Hyponatremia - Labs slightly lower than baseline. - Pt was given some IVF overnight and labs improved on 09/27 - Awaiting repeat labs for today CKD, stage 3 - Labs are fairly stable - Elevated BUN likely secondary to GI bleed - monitor I/O, renal indices HTN - BP has been fluctuating - Pt was continued on Metoprolol, Norvasc, and Lasix at admission - Monitor CAD - No symptoms. - Pt continued on cilostazol at admission (2) Black tarry stools ICD Codes: K92.1 - Melena Plan: - See above (3) Hyponatremia ICD Codes: E87.1 - Hypo-osmolality and hyponatremia Plan: - See above (4) HTN (hypertension), benign ICD Codes: I10 - Benign hypertension Status: Chronic Plan: - See above Assessment and Plan Patient examined. Assessment and plan formulated with Trice Coyle PA-C. I agree with the above. ugib. s/p egd. persistent melena. admit and GI discussing further upper/lower endoscopy by Friday. Pt wants to leave out her iv today. monitor h/h. Trice Coyle Sep 28, 2017 07:52 Justen Mckenzie MD Sep 28, 2017 13:32
[2017-09-28 07:55] VITALS: BP 169/72; PULSE 77; RESP 16; TEMP 98; O2SAT 94
[2017-09-28] MEDS: SODIUM CHLORIDE 0.9% FLUSH 10 ML FLUSH IV FLUSH SCH ×2 (09:00→21:00)
[2017-09-28] MEDS: DOCUSATE SODIUM 50 MG/SENNA 8.6 MG TAB PO SCH ×2 (09:00→22:02)
[2017-09-28 09:12] LABS: AUTOMATED NEUTROPHIL # 6.8 TH/MM3 (1.8-7.7); BASOPHIL % 0.2 % (0.0-2.0); EOSINOPHIL % 0.1 % (0.0-4.0); HEMATOCRIT 27.3 % (35.0-46.0); HEMOGLOBIN 9.4 GM/DL (11.6-15.3); LYMPH % 16.9 % (9.0-44.0); LYMPHOCYTE # 1.5 TH/MM3 (1.0-4.8); MEAN CELL VOLUME 74.2 FL (80.0-100.0); MEAN CORPUSCULAR HEMOGLOBIN 25.5 PG (27.0-34.0); MEAN CORPUSCULAR HGB CONC 34.4 % (32.0-36.0); MEAN PLATELET VOLUME 6.6 FL (7.0-11.0); MONO % 5.2 % (0.0-8.0); MONOCYTE # 0.5 TH/MM3 (0-0.9); NEUT % 77.6 % (16.0-70.0); PLATELET COUNT 400 TH/MM3 (150-450); RED BLOOD COUNT 3.68 MIL/MM3 (4.00-5.30); RED CELL DISTRIBUTION WIDTH 24.1 % (11.6-17.2); WHITE BLOOD COUNT 8.8 TH/MM3 (4.0-11.0)
[2017-09-28 09:31] LABS: BICARBONATE 24.4 MEQ/L (21.0-32.0); CALCIUM 8.5 MG/DL (8.5-10.1); CREATININE 1.67 MG/DL (0.50-1.00); MAGNESIUM 1.7 MG/DL (1.5-2.5)
[2017-09-28] MEDS: ACETAMINOPHEN 325 MG TAB PO PRN ×3 (10:17→23:33)
[2017-09-28] MEDS: CILOSTAZOL 50 MG TAB PO SCH ×2 (10:17→22:03)
[2017-09-28] MEDS: amLODIPine BESYLATE 5 MG TAB PO SCH (10:17)
[2017-09-28] MEDS: FUROSEMIDE 20 MG TAB PO SCH (10:17)
[2017-09-28] MEDS: PANTOPRAZOLE SOD 40 MG DELAYED RELEASE TAB PO SCH (10:17)
[2017-09-28] MEDS: SODIUM CHLOR 0.9% 1000 ML INJ 1,000 ML IV SCH (10:19)
[2017-09-28 11:02] LABS: OVALOCYTES 1+ (NORMAL)
[2017-09-28 12:06] VITALS: BP 136/63; PULSE 110; RESP 16; TEMP 98.1; O2SAT 99
--- NOTE | 2017-09-28 14:17 | HHI.GIFU ---
Subjective Remarks up in room. no nausea, vomiting. Diarrhea today, brown afebrile (Marysol Gibson) Objective Vitals I&O Vital Signs Date Time Temp Pulse Resp B/P (MAP) Pulse Ox O2 Delivery O2 Flow Rate FiO2 09/28/17 12:06 98.1 110 16 136/63 (87) 99 09/28/17 07:55 98.0 77 16 169/72 (104) 94 09/28/17 03:32 97.9 82 18 155/68 (97) 95 09/27/17 20:41 98.1 83 18 151/67 (95) 94 09/27/17 17:54 80 17 135/63 (87) 94 Room Air 09/27/17 17:38 98.2 82 17 137/62 (87) 97 Room Air 09/27/17 15:40 98.1 79 22 162/68 (99) 99 09/27/17 14:18 98.5 76 20 131/58 I/O 09/27/17 09/27/17 09/27/17 09/28/17 09/28/17 09/28/17 07:00 15:00 23:00 07:00 15:00 23:00 Intake Total 2 ml 700 ml Balance 2 ml 700 ml Packed Cells 400 ml Blood Product IV Normal Saline Flush 2 ml Other 300 ml # Voids 3 3 Laboratory Laboratory Tests Test 09/28/17 08:40 White Blood Count 8.8 Red Blood Count 3.68 Hemoglobin 9.4 Hematocrit 27.3 Mean Corpuscular Volume 74.2 Mean Corpuscular Hemoglobin 25.5 Mean Corpuscular Hemoglobin Concent 34.4 Red Cell Distribution Width 24.1 Platelet Count 400 Mean Platelet Volume 6.6 Neutrophils (%) (Auto) 77.6 Lymphocytes (%) (Auto) 16.9 Monocytes (%) (Auto) 5.2 Eosinophils (%) (Auto) 0.1 Basophils (%) (Auto) 0.2 Neutrophils # (Auto) 6.8 Lymphocytes # (Auto) 1.5 Monocytes # (Auto) 0.5 Eosinophils # (Auto) 0.0 Basophils # (Auto) 0.0 CBC Comment AUTO DIFF Differential Comment AUTO DIFF CONFIRMED Ovalocytes 1+ Blood Urea Nitrogen 33 Creatinine 1.67 Random Glucose 130 Calcium Level 8.5 Magnesium Level 1.7 Sodium Level 131 Potassium Level 3.8 Chloride Level 96 Carbon Dioxide Level 24.4 Anion Gap 11 Estimat Glomerular Filtration Rate 30 Physical Exam HEENT: Pupils round and reactive to light; normocephalic; atraumatic; no jaundice. Throat clean NECK: Neck is supple, no JVD, no lymphadenopathy. CHEST: Chest is clear to auscultation and percussion. CARDIAC: Regular rate and rhythm with no murmur gallop or rubs. ABDOMEN: round, Soft, nondistended, nontender; no hepatosplenomegaly; bowel sounds soft EXTREMITIES: No clubbing, cyanosis, or edema. SKIN: Normal; no rash; no jaundice.obese IT COORDINATOR: No focal deficits; alert and oriented times three. (Marysol Gibson) Assessment and Plan Plan - tarry stools 3 weeks- Patient states she has approximately 6-7 dark loose tarry stool daily, diarrhea today, 09/28 X 1 dark Protonix drip dcd and changed to PO protonix ., EGD/colonoscopy on 09/10/[address] Romero ---> incomplete colonoscopy, the scope was only advanced to the hepatic flexure due to technical difficulty apart from diverticulosis colonic mucosa was unremarkable within normal limits there was kind of a kink or tortuosity in the sigmoid played to this limitation of colonoscopy. EGD showed hiatal hernia, gastritis, duodenal AVM s/p cauterization, BX benign. Patient was advised to f/u as an OP and recommended to have CE, however patient hasn't done that yet. repeat EGD, esophagus was otherwise normal. There was moderate and erosive gastritis in the gastric antrum. Multiple biopsies taken. The duodenal mucosa appeared normal in the bulb and second portion of the duodenum. - Anemia- Due to acute GI bleed, stable at 9.4 Plan: diet continue clear liquids - Cont. PPI PO -Plan Colonoscopy Friday Go lytely prep NPO 1/2 at midnight - Monitor hh, labs - Transfuse as needed , call for any acute bleeding - Patient seen and examined by myself and Dr. Vitale, note is written on his behalf (Marysol Gibson) Physician Comments Will plan Colonoscopy Friday since last colonoscopy was incomplete, start bowel prep tomorrow morning. (Winifred,Mohammad Marysol Bowen Sep 28, 2017 14:17 Beth Vitale MD Sep 28, 2017 18:00
[2017-09-28 16:00] VITALS: BP 134/60; PULSE 74; RESP 18; TEMP 96.2; O2SAT 99
[2017-09-28 20:15] VITALS: BP 140/65; PULSE 76; RESP 16; TEMP 97.5; O2SAT 96
[2017-09-28] MEDS: ATORVASTATIN 10 MG TAB PO SCH (22:01)
[2017-09-28] MEDS: traZODone HCL 50 MG TAB PO SCH (22:02)
[2017-09-28] MEDS: ZOLPIDEM TARTRATE 10 MG TAB PO PRN (22:04)
[2017-09-29 00:15] VITALS: BP 130/50; PULSE 78; RESP 16; TEMP 97.1; O2SAT 95
[2017-09-29 04:30] VITALS: BP 133/62; PULSE 71; RESP 16; TEMP 97.5; O2SAT 94
[2017-09-29] MEDS: METOPROLOL TARTRATE 50 MG TAB PO SCH ×3 (05:35→22:54)
[2017-09-29] MEDS: ACETAMINOPHEN 325 MG TAB PO PRN ×4 (05:35→22:56)
[2017-09-29 07:22] LABS: AUTOMATED NEUTROPHIL # 4.8 TH/MM3 (1.8-7.7); BASOPHIL # 0.1 TH/MM3 (0-0.2); BASOPHIL % 0.7 % (0.0-2.0); EOSINOPHIL # 0.7 TH/MM3 (0-0.4); EOSINOPHIL % 7.7 % (0.0-4.0); HEMATOCRIT 26.8 % (35.0-46.0); LYMPH % 27.8 % (9.0-44.0); LYMPHOCYTE # 2.3 TH/MM3 (1.0-4.8); MEAN CELL VOLUME 76.4 FL (80.0-100.0); MEAN CORPUSCULAR HEMOGLOBIN 25.6 PG (27.0-34.0); MEAN CORPUSCULAR HGB CONC 33.5 % (32.0-36.0); MEAN PLATELET VOLUME 6.6 FL (7.0-11.0); MONO % 6.9 % (0.0-8.0); MONOCYTE # 0.6 TH/MM3 (0-0.9); NEUT % 56.9 % (16.0-70.0); PLATELET COUNT 375 TH/MM3 (150-450); RED BLOOD COUNT 3.51 MIL/MM3 (4.00-5.30); RED CELL DISTRIBUTION WIDTH 23.4 % (11.6-17.2); WHITE BLOOD COUNT 8.4 TH/MM3 (4.0-11.0)
[2017-09-29 07:40] LABS: BICARBONATE 27.5 MEQ/L (21.0-32.0); CALCIUM 8.3 MG/DL (8.5-10.1); CREATININE 1.54 MG/DL (0.50-1.00); MAGNESIUM 1.4 MG/DL (1.5-2.5)
[2017-09-29 08:00] VITALS: BP 135/61; PULSE 68; RESP 16; TEMP 96.6; O2SAT 93
[2017-09-29] MEDS: FUROSEMIDE 20 MG TAB PO SCH (08:23)
[2017-09-29] MEDS: DOCUSATE SODIUM 50 MG/SENNA 8.6 MG TAB PO SCH ×2 (08:23→22:55)
[2017-09-29] MEDS: CILOSTAZOL 50 MG TAB PO SCH ×2 (08:23→22:54)
[2017-09-29] MEDS: amLODIPine BESYLATE 5 MG TAB PO SCH (08:23)
[2017-09-29] MEDS: PANTOPRAZOLE SOD 40 MG DELAYED RELEASE TAB PO SCH (08:23)
[2017-09-29] MEDS: SODIUM CHLORIDE 0.9% FLUSH 10 ML FLUSH IV FLUSH SCH ×2 (08:27→22:54)
[2017-09-29 12:00] VITALS: BP 142/87; PULSE 108; RESP 16; TEMP 97; O2SAT 99
--- NOTE | 2017-09-29 12:31 | HHI.GIFU ---
Subjective Remarks Pt is resting in bed, had melena this am, no other GI issues. scheduled for colonoscopy tomorrow (Waldemar Iniguez) Objective Vitals I&O Vital Signs Date Time Temp Pulse Resp B/P (MAP) Pulse Ox O2 Delivery O2 Flow Rate FiO2 09/29/17 08:00 96.6 68 16 135/61 (85) 93 09/29/17 04:30 97.5 71 16 133/62 (85) 94 09/29/17 00:15 97.1 78 16 130/50 (76) 95 09/28/17 20:15 97.5 76 16 140/65 (90) 96 09/28/17 16:00 96.2 74 18 134/60 (84) 99 I/O 09/28/17 09/28/17 09/28/17 09/29/17 09/29/17 09/29/17 07:00 15:00 23:00 07:00 15:00 23:00 Intake Total 480 ml 360 ml 360 ml Balance 480 ml 360 ml 360 ml Intake Oral 480 ml 360 ml 360 ml # Voids 2 4 2 # Bowel Movements 2 1 1 Laboratory Laboratory Tests Test 09/29/17 06:47 White Blood Count 8.4 Red Blood Count 3.51 Hemoglobin 9.0 Hematocrit 26.8 Mean Corpuscular Volume 76.4 Mean Corpuscular Hemoglobin 25.6 Mean Corpuscular Hemoglobin Concent 33.5 Red Cell Distribution Width 23.4 Platelet Count 375 Mean Platelet Volume 6.6 Neutrophils (%) (Auto) 56.9 Lymphocytes (%) (Auto) 27.8 Monocytes (%) (Auto) 6.9 Eosinophils (%) (Auto) 7.7 Basophils (%) (Auto) 0.7 Neutrophils # (Auto) 4.8 Lymphocytes # (Auto) 2.3 Monocytes # (Auto) 0.6 Eosinophils # (Auto) 0.7 Basophils # (Auto) 0.1 CBC Comment AUTO DIFF Differential Comment AUTO DIFF CONFIRMED Blood Urea Nitrogen 33 Creatinine 1.54 Random Glucose 108 Calcium Level 8.3 Magnesium Level 1.4 Sodium Level 133 Potassium Level 3.5 Chloride Level 97 Carbon Dioxide Level 27.5 Anion Gap 9 Estimat Glomerular Filtration Rate 33 Physical Exam HEENT:normocephalic; atraumatic; no jaundice. NECK: Neck is supple, no JVD, no lymphadenopathy. CHEST: Chest is clear to auscultation and percussion. CARDIAC: Regular rate and rhythm with no murmur gallop or rubs. ABDOMEN: round, Soft, nondistended, nontender; no hepatosplenomegaly; bowel sounds soft EXTREMITIES: No clubbing, cyanosis, or edema. SKIN: Normal; no rash; no jaundice. 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 (Waldemar Iniguez) Assessment and Plan Plan - tarry stools 3 weeks- Patient states she has approximately 6-7 dark loose tarry stool daily, diarrhea today, 09/28 X 1 dark Protonix drip dcd and changed to PO protonix ., EGD/colonoscopy on 09/10/[address] Romero ---> incomplete colonoscopy, the scope was only advanced to the hepatic flexure due to technical difficulty apart from diverticulosis colonic mucosa was unremarkable within normal limits there was kind of a kink or tortuosity in the sigmoid played to this limitation of colonoscopy. EGD showed hiatal hernia, gastritis, duodenal AVM s/p cauterization, BX benign. Patient was advised to f/u as an OP and recommended to have CE, however patient hasn't done that yet. repeat EGD, esophagus was otherwise normal. There was moderate and erosive gastritis in the gastric antrum. Multiple biopsies taken. The duodenal mucosa appeared normal in the bulb and second portion of the duodenum. - Anemia- Due to acute GI bleed, stable h&h Plan: - diet continue clear liquids - Cont. PPI PO - Plan Colonoscopy tomorrow - Go lytely prep today - NPO at midnight - Monitor hh, labs - Transfuse as needed - Need CE pending results above - Patient seen and examined by myself and Dr. Vitale, note is written on his behalf (Waldemar Iniguez) Physician Comments Colonoscopy in AM, will start bowel prep, further recommendations to follow. (Beth Vitale MD) Waldemar Iniguez Sep 29, 2017 12:31 Beth Vitale MD Sep 29, 2017 20:43
--- NOTE | 2017-09-29 14:22 | HHI.PR ---
Subjective Remarks Pt still having melanotic stool She is planned for colonoscopy for tomorrow Objective Vitals Vital Signs Date Time Temp Pulse Resp B/P (MAP) Pulse Ox O2 Delivery O2 Flow Rate FiO2 09/29/17 08:00 96.6 68 16 135/61 (85) 93 09/29/17 04:30 97.5 71 16 133/62 (85) 94 09/29/17 00:15 97.1 78 16 130/50 (76) 95 09/28/17 20:15 97.5 76 16 140/65 (90) 96 09/28/17 16:00 96.2 74 18 134/60 (84) 99 Result Diagram: 09/29/17 0647 09/29/17 0647 Other Results Laboratory Tests Test 09/28/17 08:40 09/29/17 06:47 White Blood Count 8.8 TH/MM3 8.4 TH/MM3 Red Blood Count 3.68 MIL/MM3 3.51 MIL/MM3 Hemoglobin 9.4 GM/DL 9.0 GM/DL Hematocrit 27.3 % 26.8 % Mean Corpuscular Volume 74.2 FL 76.4 FL Mean Corpuscular Hemoglobin 25.5 PG 25.6 PG Mean Corpuscular Hemoglobin Concent 34.4 % 33.5 % Red Cell Distribution Width 24.1 % 23.4 % Platelet Count 400 TH/MM3 375 TH/MM3 Mean Platelet Volume 6.6 FL 6.6 FL Neutrophils (%) (Auto) 77.6 % 56.9 % Lymphocytes (%) (Auto) 16.9 % 27.8 % Monocytes (%) (Auto) 5.2 % 6.9 % Eosinophils (%) (Auto) 0.1 % 7.7 % Basophils (%) (Auto) 0.2 % 0.7 % Neutrophils # (Auto) 6.8 TH/MM3 4.8 TH/MM3 Lymphocytes # (Auto) 1.5 TH/MM3 2.3 TH/MM3 Monocytes # (Auto) 0.5 TH/MM3 0.6 TH/MM3 Eosinophils # (Auto) 0.0 TH/MM3 0.7 TH/MM3 Basophils # (Auto) 0.0 TH/MM3 0.1 TH/MM3 CBC Comment AUTO DIFF AUTO DIFF Differential Comment AUTO DIFF CONFIRMED AUTO DIFF CONFIRMED Ovalocytes 1+ Blood Urea Nitrogen 33 MG/DL 33 MG/DL Creatinine 1.67 MG/DL 1.54 MG/DL Random Glucose 130 MG/DL 108 MG/DL Calcium Level 8.5 MG/DL 8.3 MG/DL Magnesium Level 1.7 MG/DL 1.4 MG/DL Sodium Level 131 MEQ/L 133 MEQ/L Potassium Level 3.8 MEQ/L 3.5 MEQ/L Chloride Level 96 MEQ/L 97 MEQ/L Carbon Dioxide Level 24.4 MEQ/L 27.5 MEQ/L Anion Gap 11 MEQ/L 9 MEQ/L Estimat Glomerular Filtration Rate 30 ML/MIN 33 ML/MIN Objective Remarks General: NAD, AAOx3 Chest: CTA Cardiac: Regular Abd: +BS, soft ND/NT Ext: No edema A/P Problem List: (1) Symptomatic anemia ICD Codes: D64.9 - Anemia, unspecified Status: Chronic Plan: - Pt is a 77-year-old female with CAD, hypertension and peripheral arterial disease who presented to the ED with generalized weakness and continued melanotic stools. 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 She was scheduled to see Dr. Romero on 09/26 but instead reported to the ED due to increased generalized weakness. - Labs at admission with Hgb 8.8/hct 25.6 which is decreased from her labs at discharge on 09/11. - Pt has one unit of PRBCs on 09/27/17. - GI is following - Pt was started on Protonix gtt and Octreotide gtt at admission - EGD on 09/27/17 reported as gastritis but I do not have the official report at this time. - Protonix and octreotide gtt stopped on 09/28 and pt started on Protonix 40mg po daily - Case discussed with Dr. Vitale on 09/28 and he would like the pt to stay another night and get repeat labs done in the morning. Because she is still having melanotic stools he is recommending a repeat colonoscopy on 09/30/17 - Repeat H/H on 09/29/17 is 9.0/26.8 - Depending on the results of the colonoscopy pt may need outpt followup with GI for SBFT +/- capsule endoscopy. - Monitor labs - Supportive care (2) Black tarry stools ICD Codes: K92.1 - Melena Plan: - See above (3) Hyponatremia ICD Codes: E87.1 - Hypo-osmolality and hyponatremia Plan: - Labs slightly lower than baseline. - Pt was given some IVF overnight and labs improved on 09/27 - Repeat labs continue to improve (4) HTN (hypertension), benign ICD Codes: I10 - Benign hypertension Status: Chronic Plan: - BP has been fluctuating - Pt was continued on Metoprolol, Norvasc, and Lasix at admission - Monitor (5) Kidney disease, chronic, stage IV (GFR 15-29 ml/min) ICD Codes: N18.4 - Chronic kidney disease, stage 4 (severe) Status: Chronic Plan: - Labs are fairly stable - Elevated BUN likely secondary to GI bleed - monitor I/O, renal indices (6) CAD (coronary artery disease) ICD Codes: I25.10 - Coronary artery disease Status: Chronic Plan: - No symptoms. - Pt continued on cilostazol at admission Assessment and Plan Patient examined. Assessment and plan formulated with Trice Coyle PA-C. I agree with the above. Trice Coyle Sep 29, 2017 14:22 Juan Carlos Kelley DO Oct 03, 2017 00:54
[2017-09-29 16:00] VITALS: BP 184/74; PULSE 70; RESP 16; TEMP 98; O2SAT 95
[2017-09-29] MEDS ORDERED: PEG (High)/E-LYTE SOLN 4000 ML BTL PO ONE (16:00)
[2017-09-29 20:00] VITALS: BP 180/92; PULSE 75; RESP 17; TEMP 96.5; O2SAT 100
[2017-09-29] MEDS: ATORVASTATIN 10 MG TAB PO SCH (22:54)
[2017-09-29] MEDS: traZODone HCL 50 MG TAB PO SCH (22:54)
[2017-09-29] MEDS: ZOLPIDEM TARTRATE 10 MG TAB PO PRN (22:59)
[2017-09-30] VITALS: BP 138/69; PULSE 70; RESP 17; TEMP 96.9; O2SAT 95
[2017-09-30 04:00] VITALS: BP 152/75; PULSE 77; RESP 18; TEMP 96.8; O2SAT 97
[2017-09-30] MEDS: METOPROLOL TARTRATE 50 MG TAB PO SCH ×3 (06:08→21:20)
[2017-09-30] MEDS: ACETAMINOPHEN 325 MG TAB PO PRN ×2 (06:10→18:39)
[2017-09-30 06:19] LABS: AUTOMATED NEUTROPHIL # 5.7 TH/MM3 (1.8-7.7); BASOPHIL # 0.1 TH/MM3 (0-0.2); BASOPHIL % 0.7 % (0.0-2.0); EOSINOPHIL # 0.6 TH/MM3 (0-0.4); EOSINOPHIL % 6.7 % (0.0-4.0); HEMOGLOBIN 9.3 GM/DL (11.6-15.3); LYMPH % 26.6 % (9.0-44.0); LYMPHOCYTE # 2.5 TH/MM3 (1.0-4.8); MEAN CELL VOLUME 75.4 FL (80.0-100.0); MEAN CORPUSCULAR HGB CONC 33.1 % (32.0-36.0); MEAN PLATELET VOLUME 6.4 FL (7.0-11.0); MONO % 6.8 % (0.0-8.0); MONOCYTE # 0.7 TH/MM3 (0-0.9); NEUT % 59.2 % (16.0-70.0); PLATELET COUNT 362 TH/MM3 (150-450); RED BLOOD COUNT 3.71 MIL/MM3 (4.00-5.30); RED CELL DISTRIBUTION WIDTH 22.9 % (11.6-17.2); WHITE BLOOD COUNT 9.6 TH/MM3 (4.0-11.0)
[2017-09-30 07:28] LABS: OVALOCYTES 1+ (NORMAL)
[2017-09-30 08:00] VITALS: BP 178/65; PULSE 74; RESP 16; TEMP 96.8; O2SAT 94
[2017-09-30] MEDS: DOCUSATE SODIUM 50 MG/SENNA 8.6 MG TAB PO SCH ×2 (09:00→21:00)
[2017-09-30] MEDS: PANTOPRAZOLE SOD 40 MG DELAYED RELEASE TAB PO SCH (09:41)
[2017-09-30] MEDS: CILOSTAZOL 50 MG TAB PO SCH ×2 (09:41→21:20)
[2017-09-30] MEDS: SODIUM CHLORIDE 0.9% FLUSH 10 ML FLUSH IV FLUSH SCH ×2 (09:42→21:00)
[2017-09-30] MEDS: amLODIPine BESYLATE 5 MG TAB PO SCH (09:42)
[2017-09-30] MEDS: FUROSEMIDE 20 MG TAB PO SCH (09:42)
[2017-09-30 12:00] VITALS: BP 173/85; PULSE 82; RESP 16; TEMP 96.6; O2SAT 99
[2017-09-30] MEDS ORDERED: GLYCOPYRROLATE 1 MG/5 ML SYRINGE IV PUSH ONE (12:00)
[2017-09-30] MEDS ORDERED: ePHEDrine/NS 25 MG/5 ML SYRINGE IV ONE (12:00)
[2017-09-30] MEDS ORDERED: LIDOCAINE HCL 1% PF 5 ML SYRINGE OTHER ONE (12:00)
[2017-09-30] MEDS ORDERED: PROPOFOL 200 MG/20 ML AMP IV ONE (12:00)
--- NOTE | 2017-09-30 16:10 | HHI.PR ---
Subjective Remarks Pt had incomplete colonoscopy today with noted sigmoid stricture and diverticulosis per nursing staff Pts H/H is stable BP is low following procedure Objective Vitals Vital Signs Date Time Temp Pulse Resp B/P (MAP) Pulse Ox O2 Delivery O2 Flow Rate FiO2 09/30/17 13:35 81 18 105/42 (63) 97 09/30/17 13:25 97.2 87 20 96/40 (58) 98 09/30/17 12:00 96.6 82 16 173/85 (114) 99 09/30/17 08:00 96.8 74 16 178/65 (102) 94 09/30/17 08:00 Room Air 09/30/17 04:00 96.8 77 18 152/75 (100) 97 09/30/17 00:00 96.9 70 17 138/69 (92) 95 09/29/17 20:00 96.5 75 17 180/92 (121) 100 Result Diagram: 09/30/17 0418 09/29/17 0647 Other Results Laboratory Tests Test 09/29/17 06:47 09/30/17 04:18 White Blood Count 8.4 TH/MM3 9.6 TH/MM3 Red Blood Count 3.51 MIL/MM3 3.71 MIL/MM3 Hemoglobin 9.0 GM/DL 9.3 GM/DL Hematocrit 26.8 % 28.0 % Mean Corpuscular Volume 76.4 FL 75.4 FL Mean Corpuscular Hemoglobin 25.6 PG 25.0 PG Mean Corpuscular Hemoglobin Concent 33.5 % 33.1 % Red Cell Distribution Width 23.4 % 22.9 % Platelet Count 375 TH/MM3 362 TH/MM3 Mean Platelet Volume 6.6 FL 6.4 FL Neutrophils (%) (Auto) 56.9 % 59.2 % Lymphocytes (%) (Auto) 27.8 % 26.6 % Monocytes (%) (Auto) 6.9 % 6.8 % Eosinophils (%) (Auto) 7.7 % 6.7 % Basophils (%) (Auto) 0.7 % 0.7 % Neutrophils # (Auto) 4.8 TH/MM3 5.7 TH/MM3 Lymphocytes # (Auto) 2.3 TH/MM3 2.5 TH/MM3 Monocytes # (Auto) 0.6 TH/MM3 0.7 TH/MM3 Eosinophils # (Auto) 0.7 TH/MM3 0.6 TH/MM3 Basophils # (Auto) 0.1 TH/MM3 0.1 TH/MM3 CBC Comment AUTO DIFF AUTO DIFF Differential Comment AUTO DIFF CONFIRMED AUTO DIFF CONFIRMED Blood Urea Nitrogen 33 MG/DL Creatinine 1.54 MG/DL Random Glucose 108 MG/DL Calcium Level 8.3 MG/DL Magnesium Level 1.4 MG/DL Sodium Level 133 MEQ/L Potassium Level 3.5 MEQ/L Chloride Level 97 MEQ/L Carbon Dioxide Level 27.5 MEQ/L Anion Gap 9 MEQ/L Estimat Glomerular Filtration Rate 33 ML/MIN Ovalocytes 1+ Objective Remarks General: NAD, AAOx3 Chest: CTA Cardiac: Regular Abd: +BS, soft ND/NT Ext: No edema A/P Problem List: (1) Symptomatic anemia ICD Codes: D64.9 - Anemia, unspecified Status: Chronic Plan: - Pt is a 77-year-old female with CAD, hypertension and peripheral arterial disease who presented to the ED with generalized weakness and continued melanotic stools. 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 She was scheduled to see Dr. Romero on 09/26 but instead reported to the ED due to increased generalized weakness. - Labs at admission with Hgb 8.8/hct 25.6 which is decreased from her labs at discharge on 09/11. - Pt has one unit of PRBCs on 09/27/17. - GI is following - Pt was started on Protonix gtt and Octreotide gtt at admission - EGD on 09/27/17 reported as gastritis but I do not have the official report at this time. - Protonix and octreotide gtt stopped on 09/28 and pt started on Protonix 40mg po daily - Case discussed with Dr. Vitale on 09/28 and he would like the pt to stay another night as she was still having melanotic stools. - Repeat H/H on 09/30/17 is 9.3/28.0 - Incomplete colonoscopy 09/30/17 which reportedly noted sigmoid stricture and diverticulosis per nursing staff. - Will discuss with GI if the pt would benefit from Barium enema to try to evaluate the rest of the colon or just outpt followup with GI for SBFT +/- capsule endoscopy. - Monitor labs - Supportive care (2) Black tarry stools ICD Codes: K92.1 - Melena Plan: - See above (3) Hyponatremia ICD Codes: E87.1 - Hypo-osmolality and hyponatremia Plan: - Labs slightly lower than baseline. - Pt was given some IVF overnight and labs improved on 09/27 - Repeat labs continue to improve (4) HTN (hypertension), benign ICD Codes: I10 - Benign hypertension Status: Chronic Plan: - BP has been fluctuating - Pt was continued on Metoprolol, Norvasc, and Lasix at admission - Monitor (5) Kidney disease, chronic, stage IV (GFR 15-29 ml/min) ICD Codes: N18.4 - Chronic kidney disease, stage 4 (severe) Status: Chronic Plan: - Labs are fairly stable - Elevated BUN likely secondary to GI bleed - monitor I/O, renal indices (6) CAD (coronary artery disease) ICD Codes: I25.10 - Coronary artery disease Status: Chronic Plan: - No symptoms. - Pt continued on cilostazol at admission Assessment and Plan Patient examined. Assessment and plan formulated with Trice Coyle PA-C. I agree with the above. per verbal report sigmoid stricture noted on colonoscopy. Obtain Barrium Enema for further evaluation. Trice Coyle Sep 30, 2017 16:10 Juan Carlos Kelley DO Sep 30, 2017 17:04
[2017-09-30] MEDS ORDERED: MAGNESIUM CITRATE SOLN 300 ML BTL PO ONE (18:00)
[2017-09-30] MEDS ORDERED: BISACODYL EC 5 MG TABEC PO ONE ×2 (18:00→21:00)
[2017-09-30 20:25] VITALS: BP 124/64; PULSE 93; RESP 17; TEMP 98.6; O2SAT 96
[2017-09-30] MEDS: traZODone HCL 50 MG TAB PO SCH (21:20)
[2017-09-30] MEDS: ZOLPIDEM TARTRATE 10 MG TAB PO PRN (21:20)
[2017-09-30] MEDS: ATORVASTATIN 10 MG TAB PO SCH (21:20)
[2017-10-01] VITALS (7 sets, daily range): BP systolic 107–160; BP diastolic 56–71; PULSE 82–94; RESP 17–18; TEMP 96–97.7; O2SAT 95–98
[2017-10-01] MEDS: ACETAMINOPHEN 325 MG TAB PO PRN ×4 (00:53→17:29)
[2017-10-01 05:48] LABS: BASOPHIL % 0.4 % (0.0-2.0); EOSINOPHIL # 0.2 TH/MM3 (0-0.4); EOSINOPHIL % 1.6 % (0.0-4.0); HEMATOCRIT 26.7 % (35.0-46.0); HEMOGLOBIN 8.9 GM/DL (11.6-15.3); MEAN CELL VOLUME 74.7 FL (80.0-100.0); MEAN CORPUSCULAR HEMOGLOBIN 24.9 PG (27.0-34.0); MEAN CORPUSCULAR HGB CONC 33.4 % (32.0-36.0); MEAN PLATELET VOLUME 6.4 FL (7.0-11.0); MONO % 6.2 % (0.0-8.0); MONOCYTE # 0.7 TH/MM3 (0-0.9); NEUT % 73.8 % (16.0-70.0); PLATELET COUNT 322 TH/MM3 (150-450); RED BLOOD COUNT 3.57 MIL/MM3 (4.00-5.30); RED CELL DISTRIBUTION WIDTH 22.8 % (11.6-17.2); WHITE BLOOD COUNT 10.9 TH/MM3 (4.0-11.0)
[2017-10-01] MEDS: METOPROLOL TARTRATE 50 MG TAB PO SCH ×3 (06:05→21:20)
[2017-10-01 06:07] LABS: BICARBONATE 27.2 MEQ/L (21.0-32.0); CREATININE 1.85 MG/DL (0.50-1.00); MAGNESIUM 1.2 MG/DL (1.5-2.5)
[2017-10-01] MEDS: amLODIPine BESYLATE 5 MG TAB PO SCH (08:33)
[2017-10-01] MEDS: CILOSTAZOL 50 MG TAB PO SCH ×2 (08:33→21:18)
[2017-10-01] MEDS: SODIUM CHLORIDE 0.9% FLUSH 10 ML FLUSH IV FLUSH SCH ×2 (08:33→21:18)
[2017-10-01] MEDS: FUROSEMIDE 20 MG TAB PO SCH (08:33)
[2017-10-01] MEDS: DOCUSATE SODIUM 50 MG/SENNA 8.6 MG TAB PO SCH ×2 (08:33→21:19)
[2017-10-01] MEDS: PANTOPRAZOLE SOD 40 MG DELAYED RELEASE TAB PO SCH (08:33)
[2017-10-01] MEDS ORDERED: DIATRIZOATE MEGLUM/DIATRIZOATE SOD 120 ML BTL (for RAD DIAG) PO ONE (10:29)
--- NOTE | 2017-10-01 11:20 | RADRPT ---
EXAM DATE/TIME: 10/01/2017 10:03 [facility] COMPARISON: No previous studies available for comparison. INDICATIONS : Anemia, blood in stool. FLUORO TIME: 0.4 minutes IMAGE COUNT: 11 CONTRAST: [facility] IMAGING TIME(S): 15 min, 30 min MEDICAL HISTORY : None. SURGICAL HISTORY : Appendectomy. Cholecystectomy. ENCOUNTER: Initial ACUITY: 4 - 6 days PAIN SCORE: 0/10 LOCATION: Bilateral abdomen. FINDINGS: Preliminary film is unremarkable. The stomach is grossly unremarkable. Examination of the small bowel demonstrates normal mucosal pattern involving the jejunum and ileum. There is no evidence of mass or obstruction. No intraluminal filling defects are identified. Small bowel transit time is normal at 45 minutes minutes. Fluoroscopy of the abdomen and terminal ileum de monstrates no abnormality. CONCLUSION: Negative for mass or obstruction. Poli Holloway MD FACR on October 01, 2017 at 11:17 Board Certified Radiologist. This report was verified electronically.
--- NOTE | 2017-10-01 15:10 | HHI.GIFU ---
Subjective Remarks Pt is OOB and sitting in bedside chair. She complains of continued abdominal pain and diarrhea. She is also asking for her diet to be advanced. Currently on clear liquid diet. Reports some nausea, denies vomiting. Objective Vitals I&O Vital Signs Date Time Temp Pulse Resp B/P (MAP) Pulse Ox O2 Delivery O2 Flow Rate FiO2 10/01/17 08:00 97.2 82 18 121/56 (77) 95 10/01/17 02:48 97 10/01/17 00:10 97.7 94 17 121/56 (77) 96 09/30/17 20:25 98.6 93 17 124/64 (84) 96 I/O 09/30/17 09/30/17 09/30/17 10/01/17 10/01/17 10/01/17 07:00 15:00 23:00 07:00 15:00 23:00 Intake Total 0 ml 200 ml 240 ml 240 ml Balance 0 ml 200 ml 240 ml 240 ml Intake Oral 0 ml 240 ml 240 ml Other 200 ml # Voids 2 8 4 # Bowel Movements 2 4 4 Laboratory Laboratory Tests Test 10/01/17 05:23 White Blood Count 10.9 Red Blood Count 3.57 Hemoglobin 8.9 Hematocrit 26.7 Mean Corpuscular Volume 74.7 Mean Corpuscular Hemoglobin 24.9 Mean Corpuscular Hemoglobin Concent 33.4 Red Cell Distribution Width 22.8 Platelet Count 322 Mean Platelet Volume 6.4 Neutrophils (%) (Auto) 73.8 Lymphocytes (%) (Auto) 18.0 Monocytes (%) (Auto) 6.2 Eosinophils (%) (Auto) 1.6 Basophils (%) (Auto) 0.4 Neutrophils # (Auto) 8.0 Lymphocytes # (Auto) 2.0 Monocytes # (Auto) 0.7 Eosinophils # (Auto) 0.2 Basophils # (Auto) 0.0 CBC Comment AUTO DIFF Differential Comment AUTO DIFF CONFIRMED Platelet Estimate NORMAL Platelet Morphology Comment NORMAL Blood Urea Nitrogen 30 Creatinine 1.85 Random Glucose 113 Calcium Level 8.0 Magnesium Level 1.2 Sodium Level 132 Potassium Level 3.1 Chloride Level 95 Carbon Dioxide Level 27.2 Anion Gap 10 Estimat Glomerular Filtration Rate 26 Imaging Last Impressions Small Bowel X-Ray 10/01/17 0000 Signed Impressions: Service Date/Time: Sunday, October 01, 2017 10:03 - CONCLUSION: Negative for mass or obstruction. Poli Holloway MD FACR Physical Exam HEENT: Normocephalic; atraumatic CHEST: Even/unlabored CARDIAC: RRR ABDOMEN: Obese, Soft, nontender; bowel sounds active x 4 EXTREMITIES: No clubbing, cyanosis, or edema. SKIN: Normal; no rash; no jaundice. HOME HEALTH TRAVEL OT: No focal deficits; alert and oriented times three. Assessment and Plan Plan - Melena- Protonix drip dcd and changed to PO protonix ., EGD/colonoscopy on with Dr. Romero ---> incomplete colonoscopy, the scope was only advanced to the hepatic flexure due to technical difficulty apart from diverticulosis colonic mucosa was unremarkable within normal limits there was kind of a kink or tortuosity in the sigmoid played to this limitation of colonoscopy. EGD showed hiatal hernia, gastritis, duodenal AVM s/p cauterization, BX benign. Patient was advised to f/u as an OP and recommended to have CE, however patient hasn't done that yet. / Pt is now S/P EGD and colonoscopy --> Esophagus was normal. Gastritis in the antrum. Normal duodenal mucosa and second portion of the duodenum. Moderate diverticulosis throughout entire examined colon. Internal hemorrhoids. Stomach, antrum pathology --> Gastric antral mucosa without significant histologic abnormality. H/H low but stable currently 8.9/26.7. 1 Unit of PRBC transfused on Sep 27. Continues on PO Protonix. Small bowel series (10/01) --> Negative for mass or obstruction Plan: - Advance diet - Continue Protonix - Monitor H/H - Transfuse as needed - Supportive care - Further recommendations to follow Pt has been seen and examined by myself and Dr. Solorzano and this note is written on his behalf Orly Cook Oct 01, 2017 15:10
[2017-10-01] MEDS ORDERED: POTASSIUM CHLORIDE 20 MEQ CONTROLLED RELEASE TAB PO ONE (17:15)
--- NOTE | 2017-10-01 17:17 | HHI.PR ---
Subjective Remarks Patient reports feeling much better denies any further rectal bleeding Objective Vitals Vital Signs Date Time Temp Pulse Resp B/P (MAP) Pulse Ox O2 Delivery O2 Flow Rate FiO2 10/01/17 12:00 96.0 94 18 109/60 (76) 98 10/01/17 08:00 97.2 82 18 121/56 (77) 95 10/01/17 02:48 97 10/01/17 00:10 97.7 94 17 121/56 (77) 96 09/30/17 20:25 98.6 93 17 124/64 (84) 96 Result Diagram: 10/01/17 0523 10/01/17 0523 Other Results Laboratory Tests Test 09/29/17 06:47 09/30/17 04:18 10/01/17 05:23 White Blood Count 8.4 TH/MM3 9.6 TH/MM3 10.9 TH/MM3 Red Blood Count 3.51 MIL/MM3 3.71 MIL/MM3 3.57 MIL/MM3 Hemoglobin 9.0 GM/DL 9.3 GM/DL 8.9 GM/DL Hematocrit 26.8 % 28.0 % 26.7 % Mean Corpuscular Volume 76.4 FL 75.4 FL 74.7 FL Mean Corpuscular Hemoglobin 25.6 PG 25.0 PG 24.9 PG Mean Corpuscular Hemoglobin Concent 33.5 % 33.1 % 33.4 % Red Cell Distribution Width 23.4 % 22.9 % 22.8 % Platelet Count 375 TH/MM3 362 TH/MM3 322 TH/MM3 Mean Platelet Volume 6.6 FL 6.4 FL 6.4 FL Neutrophils (%) (Auto) 56.9 % 59.2 % 73.8 % Lymphocytes (%) (Auto) 27.8 % 26.6 % 18.0 % Monocytes (%) (Auto) 6.9 % 6.8 % 6.2 % Eosinophils (%) (Auto) 7.7 % 6.7 % 1.6 % Basophils (%) (Auto) 0.7 % 0.7 % 0.4 % Neutrophils # (Auto) 4.8 TH/MM3 5.7 TH/MM3 8.0 TH/MM3 Lymphocytes # (Auto) 2.3 TH/MM3 2.5 TH/MM3 2.0 TH/MM3 Monocytes # (Auto) 0.6 TH/MM3 0.7 TH/MM3 0.7 TH/MM3 Eosinophils # (Auto) 0.7 TH/MM3 0.6 TH/MM3 0.2 TH/MM3 Basophils # (Auto) 0.1 TH/MM3 0.1 TH/MM3 0.0 TH/MM3 CBC Comment AUTO DIFF AUTO DIFF AUTO DIFF Differential Comment AUTO DIFF CONFIRMED AUTO DIFF CONFIRMED AUTO DIFF CONFIRMED Blood Urea Nitrogen 33 MG/DL 30 MG/DL Creatinine 1.54 MG/DL 1.85 MG/DL Random Glucose 108 MG/DL 113 MG/DL Calcium Level 8.3 MG/DL 8.0 MG/DL Magnesium Level 1.4 MG/DL 1.2 MG/DL Sodium Level 133 MEQ/L 132 MEQ/L Potassium Level 3.5 MEQ/L 3.1 MEQ/L Chloride Level 97 MEQ/L 95 MEQ/L Carbon Dioxide Level 27.5 MEQ/L 27.2 MEQ/L Anion Gap 9 MEQ/L 10 MEQ/L Estimat Glomerular Filtration Rate 33 ML/MIN 26 ML/MIN Ovalocytes 1+ Platelet Estimate NORMAL Platelet Morphology Comment NORMAL Imaging Last Impressions Small Bowel X-Ray 10/01/17 0000 Signed Impressions: Service Date/Time: Sunday, October 01, 2017 10:03 - CONCLUSION: Negative for mass or obstruction. Poli Holloway MD FACR Objective Remarks General: NAD, AAOx3 Chest: CTA Cardiac: Regular Abd: +BS, soft ND/NT Ext: No edema A/P Problem List: (1) Symptomatic anemia ICD Codes: D64.9 - Anemia, unspecified Status: Chronic Plan: - Pt is a 77-year-old female with CAD, hypertension and peripheral arterial disease who presented to the ED with generalized weakness and continued melanotic stools. 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 She was scheduled to see Dr. Romero on 09/26 but instead reported to the ED due to increased generalized weakness. - Labs at admission with Hgb 8.8/hct 25.6 which is decreased from her labs at discharge on 09/11. - Pt has one unit of PRBCs on 09/27/17. - GI is following - Pt was started on Protonix gtt and Octreotide gtt at admission - EGD on 09/27/17 reported as gastritis but I do not have the official report at this time. - Protonix and octreotide gtt stopped on 09/28 and pt started on Protonix 40mg po daily - Case discussed with Dr. Vitale on 09/28 and he would like the pt to stay another night as she was still having melanotic stools. - Repeat H/H on 09/30/17 is 9.3/28.0, (10/01) hgb 8.9 - Incomplete colonoscopy 09/30/17 which reportedly noted sigmoid stricture and diverticulosis per nursing staff. - 10/01/17 EGD and colonoscopy --> Esophagus was normal. Gastritis in the antrum. Normal duodenal mucosa and second portion of the duodenum. Moderate diverticulosis throughout entire examined colon. Internal hemorrhoids. Stomach , antrum pathology --> Gastric antral mucosa without significant histologic abnormality. - Patient refused barium enema today - Small bowel follow through 10/01 --> Negative for mass or obstruction - Monitor labs, repeat CBC in AM - Supportive care Discharge planning recheck H/H in AM have patient ambulate with PT If patient stable plan to DC tomorrow (2) Black tarry stools ICD Codes: K92.1 - Melena Plan: - See above (3) Hyponatremia ICD Codes: E87.1 - Hypo-osmolality and hyponatremia Plan: - Labs slightly lower than baseline. - Pt was given some IVF overnight and labs improved on 09/27 - Repeat labs continue to improve (4) HTN (hypertension), benign ICD Codes: I10 - Benign hypertension Status: Chronic Plan: - BP has been fluctuating - Pt was continued on Metoprolol, Norvasc, and Lasix at admission - Monitor (5) Kidney disease, chronic, stage IV (GFR 15-29 ml/min) ICD Codes: N18.4 - Chronic kidney disease, stage 4 (severe) Status: Chronic Plan: - Labs are fairly stable - Elevated BUN likely secondary to GI bleed - monitor I/O, renal indices (6) CAD (coronary artery disease) ICD Codes: I25.10 - Coronary artery disease Status: Chronic Plan: - No symptoms. - Pt continued on cilostazol at admission (7) Hypokalemia ICD Codes: E87.6 - Hypokalemia Plan: 10/01 potassium 3.1 replaced recheck in AM Assessment and Plan Patient examined. Assessment and plan formulated with Lacey Dennis PA-C. I agree with the above. Lacey Dennis Oct 01, 2017 17:17 Juan Carlos Kelley DO Oct 03, 2017 00:55
[2017-10-01] MEDS: ACETAMINOPHEN/HYDROcodone 325 MG/5 MG TAB PO PRN (20:15)
[2017-10-01] MEDS: ZOLPIDEM TARTRATE 10 MG TAB PO PRN (21:18)
[2017-10-01] MEDS: traZODone HCL 50 MG TAB PO SCH (21:19)
[2017-10-01] MEDS: ATORVASTATIN 10 MG TAB PO SCH (21:19)
[2017-10-02] MEDS: ACETAMINOPHEN/HYDROcodone 325 MG/5 MG TAB PO PRN ×2 (04:55→13:17)
[2017-10-02] MEDS: METOPROLOL TARTRATE 50 MG TAB PO SCH ×2 (05:58→13:17)
[2017-10-02 07:26] LABS: HEMATOCRIT 27.1 % (35.0-46.0); HEMOGLOBIN 9.1 GM/DL (11.6-15.3); MEAN CELL VOLUME 75.2 FL (80.0-100.0); MEAN CORPUSCULAR HEMOGLOBIN 25.3 PG (27.0-34.0); MEAN CORPUSCULAR HGB CONC 33.6 % (32.0-36.0); MEAN PLATELET VOLUME 6.9 FL (7.0-11.0); PLATELET COUNT 358 TH/MM3 (150-450); RED BLOOD COUNT 3.61 MIL/MM3 (4.00-5.30); RED CELL DISTRIBUTION WIDTH 22.9 % (11.6-17.2); WHITE BLOOD COUNT 10.3 TH/MM3 (4.0-11.0)
[2017-10-02 07:55] LABS: BICARBONATE 25.3 MEQ/L (21.0-32.0); CALCIUM 8.2 MG/DL (8.5-10.1); CREATININE 2.47 MG/DL (0.50-1.00)
[2017-10-02 08:00] VITALS: BP 109/78; PULSE 65; RESP 18; TEMP 96.8; O2SAT 98
[2017-10-02] MEDS ORDERED: AMLO5 PO (08:57)
[2017-10-02] MEDS ORDERED: PANT40TA3 PO (08:59)
[2017-10-02] MEDS: amLODIPine BESYLATE 5 MG TAB PO SCH (09:00)
[2017-10-02] MEDS: DOCUSATE SODIUM 50 MG/SENNA 8.6 MG TAB PO SCH (09:00)
[2017-10-02] MEDS: CILOSTAZOL 50 MG TAB PO SCH (10:12)
[2017-10-02] MEDS: PANTOPRAZOLE SOD 40 MG DELAYED RELEASE TAB PO SCH (10:12)
[2017-10-02] MEDS: SODIUM CHLORIDE 0.9% FLUSH 10 ML FLUSH IV FLUSH SCH (10:13)
[2017-10-02] MEDS: ACETAMINOPHEN 325 MG TAB PO PRN (10:44)
[2017-10-02 12:00] VITALS: BP 134/64; PULSE 85; RESP 18; TEMP 96; O2SAT 99
--- NOTE | 2017-10-02 15:41 | HHI.GIFU ---
Subjective Remarks Pt lying in bed watching TV. She reports diarrhea has stopped. Denies nausea, vomiting, abdominal pain. Tolerating diet. Objective Vitals I&O Vital Signs Date Time Temp Pulse Resp B/P (MAP) Pulse Ox O2 Delivery O2 Flow Rate FiO2 10/02/17 14:17 18 10/02/17 12:00 96.0 85 18 134/64 (87) 99 10/02/17 11:44 18 10/02/17 08:00 96.8 65 18 109/78 (88) 98 10/01/17 23:20 96.7 83 18 122/60 (80) 96 10/01/17 20:00 98 Room Air 10/01/17 19:24 96.7 86 18 107/61 (76) 98 10/01/17 16:00 96.9 86 18 160/71 (100) 98 I/O 10/01/17 10/01/17 10/01/17 10/02/17 10/02/17 10/02/17 07:00 15:00 23:00 07:00 15:00 23:00 Intake Total 240 ml 600 ml 480 ml 360 ml Balance 240 ml 600 ml 480 ml 360 ml Intake Oral 240 ml 600 ml 480 ml 360 ml # Voids 4 4 4 4 # Bowel Movements 4 5 4 3 Laboratory Laboratory Tests Test 10/02/17 04:51 White Blood Count 10.3 Red Blood Count 3.61 Hemoglobin 9.1 Hematocrit 27.1 Mean Corpuscular Volume 75.2 Mean Corpuscular Hemoglobin 25.3 Mean Corpuscular Hemoglobin Concent 33.6 Red Cell Distribution Width 22.9 Platelet Count 358 Mean Platelet Volume 6.9 Blood Urea Nitrogen 38 Creatinine 2.47 Random Glucose 87 Calcium Level 8.2 Sodium Level 136 Potassium Level 3.6 Chloride Level 99 Carbon Dioxide Level 25.3 Anion Gap 12 Estimat Glomerular Filtration Rate 19 Imaging Last Impressions Small Bowel X-Ray 10/01/17 0000 Signed Impressions: Service Date/Time: Sunday, October 01, 2017 10:03 - CONCLUSION: Negative for mass or obstruction. Poli Holloway MD FACR Physical Exam HEENT: Normocephalic; atraumatic CHEST: Even/unlabored CARDIAC: RRR ABDOMEN: Obese, Soft, nontender; bowel sounds active x 4 EXTREMITIES: No clubbing, cyanosis, or edema. SKIN: Normal; no rash; no jaundice. HEAD ORTHOPEDIC TEAM PHYSICIAN: No focal deficits; alert and oriented times three. Assessment and Plan Plan - Melena- Protonix drip dcd and changed to PO protonix ., EGD/colonoscopy on with Dr. Romero ---> incomplete colonoscopy, the scope was only advanced to the hepatic flexure due to technical difficulty apart from diverticulosis colonic mucosa was unremarkable within normal limits there was kind of a kink or tortuosity in the sigmoid played to this limitation of colonoscopy. EGD showed hiatal hernia, gastritis, duodenal AVM s/p cauterization, BX benign. Patient was advised to f/u as an OP and recommended to have CE, however patient hasn't done that yet. 10/01 Pt is now S/P EGD and colonoscopy --> Esophagus was normal. Gastritis in the antrum. Normal duodenal mucosa and second portion of the duodenum. Moderate diverticulosis throughout entire examined colon. Internal hemorrhoids. Stomach, antrum pathology --> Gastric antral mucosa without significant histologic abnormality. H/H low but stable currently 8.9/26.7. 1 Unit of PRBC transfused on Sep 27. Continues on PO Protonix. Small bowel series (10/01) --> Negative for mass or obstruction 10/02 Pt reports resolution in diarrhea and abdominal pain H/H stable 9.1/27.1 Pt reports she is planned for discharge today Plan: - Follow up with [facility] in 1-2 weeks after discharge Pt has been seen and examined by myself and Dr. Solorzano and this note is written on his behalf Orly Cook Oct 02, 2017 15:41
[2017-10-02 16:00] VITALS: BP 107/48; PULSE 85; RESP 18; TEMP 97.2; O2SAT 98
--- NOTE | 2017-10-02 16:06 | HHI.DS ---
Discharge Summary Admission Date Sep 28, 2017 at 13:32 Discharge Date: Oct 02, 2017 Admitting Diagnosis symptomatic anemia (1) Symptomatic anemia ICD Codes: D64.9 - Anemia, unspecified Status: Chronic (2) Black tarry stools ICD Codes: K92.1 - Melena (3) Hyponatremia ICD Codes: E87.1 - Hypo-osmolality and hyponatremia (4) HTN (hypertension), benign ICD Codes: I10 - Benign hypertension Status: Chronic (5) Kidney disease, chronic, stage IV (GFR 15-29 ml/min) ICD Codes: N18.4 - Chronic kidney disease, stage 4 (severe) Status: Chronic (6) CAD (coronary artery disease) ICD Codes: I25.10 - Coronary artery disease Status: Chronic (7) Hypokalemia ICD Codes: E87.6 - Hypokalemia Consultants Dr. Vitale Procedures 10/01 panendoscopy with biopsy with Dr. Vitale 09/[address] Solorzano Brief History 77-year old female presents emergency department for evaluation of her tarry stools 3 weeks. Patient states she has approximately 6-7 dark tarry stool daily. Patient states she feels lightheaded, dizzy and short of breath on exertion. Patient denies any nausea or vomiting at this time. Patient denies any fevers or chills. Patient denies any dysuria or hematuria. Patient's been evaluated by GI, Dr. Romero and colonoscopy was performed. When looking up the results of the colonoscopy Dr. Romero states he was unable to finish the colonoscopy due to technical difficulty. Patient denies any tobacco or alcohol use. Patient states has had twist in colon making colonoscopy difficult. In er found to have hgb at 8.8 and is sym[ptomatic as above was started on protonix drip and consult GI. CBC/BMP: 10/02/17 0451 10/02/17 0451 Significant Findings Laboratory Tests Test 09/30/17 04:18 10/01/17 05:23 10/02/17 04:51 Red Blood Count 3.71 MIL/MM3 (4.00-5.30) 3.57 MIL/MM3 (4.00-5.30) 3.61 MIL/MM3 (4.00-5.30) Hemoglobin 9.3 GM/DL (11.6-15.3) 8.9 GM/DL (11.6-15.3) 9.1 GM/DL (11.6-15.3) Hematocrit 28.0 % (35.0-46.0) 26.7 % (35.0-46.0) 27.1 % (35.0-46.0) Mean Corpuscular Volume 75.4 FL (80.0-100.0) 74.7 FL (80.0-100.0) 75.2 FL (80.0-100.0) Mean Corpuscular Hemoglobin 25.0 PG (27.0-34.0) 24.9 PG (27.0-34.0) 25.3 PG (27.0-34.0) Red Cell Distribution Width 22.9 % (11.6-17.2) 22.8 % (11.6-17.2) 22.9 % (11.6-17.2) Mean Platelet Volume 6.4 FL (7.0-11.0) 6.4 FL (7.0-11.0) 6.9 FL (7.0-11.0) Eosinophils (%) (Auto) 6.7 % (0.0-4.0) Eosinophils # (Auto) 0.6 TH/MM3 (0-0.4) Ovalocytes 1+ (NORMAL) Neutrophils (%) (Auto) 73.8 % (16.0-70.0) Neutrophils # (Auto) 8.0 TH/MM3 (1.8-7.7) Blood Urea Nitrogen 30 MG/DL (7-18) 38 MG/DL (7-18) Creatinine 1.85 MG/DL (0.50-1.00) 2.47 MG/DL (0.50-1.00) Random Glucose 113 MG/DL (74-106) Calcium Level 8.0 MG/DL (8.5-10.1) 8.2 MG/DL (8.5-10.1) Magnesium Level 1.2 MG/DL (1.5-2.5) Sodium Level 132 MEQ/L (136-145) Potassium Level 3.1 MEQ/L (3.5-5.1) Chloride Level 95 MEQ/L (98-107) Estimat Glomerular Filtration Rate 26 ML/MIN (>89) 19 ML/MIN (>89) Imaging Last Impressions Small Bowel X-Ray 10/01/17 0000 Signed Impressions: Service Date/Time: Sunday, October 01, 2017 10:03 - CONCLUSION: Negative for mass or obstruction. Poli Holloway MD FACR PE at Discharge General: NAD, AAOx3 Chest: CTA Cardiac: Regular Abd: +BS, soft ND/NT Ext: No edema Hospital Course Symptomatic anemia - Pt is a 77-year-old female with CAD, hypertension and peripheral arterial disease who presented to the ED with generalized weakness and continued melanotic stools. 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 She was scheduled to see Dr. Romero on 09/26 but instead reported to the ED due to increased generalized weakness. - Labs at admission with Hgb 8.8/hct 25.6 which is decreased from her labs at discharge on 09/11. - Pt has one unit of PRBCs on 09/27/17. - GI is following - Pt was started on Protonix gtt and Octreotide gtt at admission - EGD on 09/27/17 reported as gastritis but I do not have the official report at this time. - Protonix and octreotide gtt stopped on 09/28 and pt started on Protonix 40mg po daily - Case discussed with Dr. Vitale on 09/28 and he would like the pt to stay another night as she was still having melanotic stools. - Repeat H/H on 09/30/17 is 9.3/28.0, (10/01) hgb 8.9, (10/02) 9.1 - Incomplete colonoscopy 09/30/17 which reportedly noted sigmoid stricture and diverticulosis per nursing staff. - 10/01/17 EGD and colonoscopy --> Esophagus was normal. Gastritis in the antrum. Normal duodenal mucosa and second portion of the duodenum. Moderate diverticulosis throughout entire examined colon. Internal hemorrhoids. Stomach , antrum pathology --> Gastric antral mucosa without significant histologic abnormality. - Patient refused barium enema today - Small bowel follow through 10/01 --> Negative for mass or obstruction - patient will need to follow up with GI for possible capsule endoscopy Supportive care Black tarry stools - See above Hyponatremia - Labs slightly lower than baseline. - Pt was given some IVF overnight and labs improved on 09/27 - Repeat labs monitored and Na continues to improve HTN (hypertension), benign - BP has been fluctuating - Pt was continued on Metoprolol, Norvasc, and Lasix at admission - Monitor ASHTYN on CKD - Patient recived Lasix while in the hospital. DC Lasix (10/02) - creatinine increased 1.71 on admission -> 2.41 (10/02) - patient follows with Dr. Willis as an outpatient. Dr. Kelley discussed the case with Dr. Willis - patient offered further hospitalization to monitor renal function. Patient does not want further hospitalization - Recheck BMP in 5 days with results to PCP and Dr. Willis CAD (coronary artery disease) - No symptoms. - Pt continued on cilostazol at admission Hypokalemia 10/01 potassium 3.1 replaced recheck in AM Pt Condition on Discharge: Stable Discharge Disposition: Discharge Home Discharge Instructions DIET: Follow Instructions for: Heart Healthy Diet Activities you can perform: Regular-No Restrictions Follow up Referrals: Gastroenterology - 1 Week with Ruperto Solorzano MD PCP Follow-up - [address] Lugo New Medications: Amlodipine (Norvasc) 5 Mg Tab 5 MG PO DAILY for blood pressure, #30 TAB 0 Refills Pantoprazole (Pantoprazole) 40 Mg Tab 40 MG PO DAILY for stomach acid, #30 TAB 0 Refills Continued Medications: Albuterol 18 GM Inh (Ventolin Hfa 18 GM Inh) 90 Mcg/Act Aer 2 PUFF INH Q4-6H PRN for SHORTNESS OF BREATH, #1 INHALER 0 Refills Atorvastatin (Atorvastatin) 10 Mg Tab 10 MG PO HS for Cholesterol Management, #30 TAB 0 Refills Cholecalciferol (D3 Super Strength) 2,000 Unit Cap 2000 UNITS PO DAILY for Nutritional Supplement, #30 CAP 0 Refills Cilostazol (Cilostazol) 50 Mg Tab 50 MG PO BID for INTERMITTENT CLAUDICATION, TAB 0 Refills Metoprolol Tartrate (Lopressor) 50 Mg Tab 75 MG PO Q8HR for tachycardia for 30 Days, TAB Multiple Vitamins W/ Minerals (Preservision Areds) 1 Tab 1 TAB PO DAILY for Nutritional Supplement, TAB 0 Refills Trazodone (Trazodone) 50 Mg Tab 50 MG PO HS for Control Depression, #15 TAB 0 Refills Zolpidem (Zolpidem) 10 Mg Tab 10 MG PO HS PRN for INSOMNIA, TAB 0 Refills Discontinued Medications: Aspirin (Aspirin Low Dose) 81 Mg Chew 81 MG CHEW DAILY, TAB 0 Refills Omeprazole (Omeprazole) 20 Mg Tab 40 MG PO DAILY for gerd, #60 TAB 0 Refills Additional Information Patient examined. Assessment and plan formulated with Lacey Dennis PA-C. I agree with the above. Pt presented with anemia requiring transfusion and c/o rectal bleeding. Pt underwent colonoscopy which per verbal report showed sigmoid narrowing. Pt underwent SBFT which did NOT reveal significant abnormalities. Pt will need outpt pill endoscopy. Pt to f/u with GI outpt. Pt received lasix. Pt noted to have rise in her Cr from 1.6 on admission to 2.4 at discharge. I offered to keep pt further for IVFs. Ms. Purdy declined further hospitalization. Case d/w pt's Nehrologist Dr. Willis () Pt given prescription to have repeat BMP at [facility] outpt lab on 10/06/17 with results to her PCP and Dr. Willis. Lacey Dennis Oct 02, 2017 16:06 Juan Carlos Kelley DO Oct 03, 2017 01:05
== END 2017-10-02 18:40 | disposition home or self-care (01) | DRG 378 ==
LOC: NEPC 13:06 → NEDA 17:56 → NEPHCDU 21:06 → NEPFCDU 09-27 20:07 → OBSVTOIN 09-28 13:32 → N06A 09-28 15:06
PROVIDERS: ADMIT Hospitalist; ATTEND Hospitalist
PROC: 30233N1 Transfusion of Nonautologous Red Blood Cells into Peripheral Vein, Percutaneous Approach (ICD-10-PCS; 2017-09-27)
PROC: 0DB68ZX Excision of Stomach, Via Natural or Artificial Opening Endoscopic, Diagnostic (ICD-10-PCS; principal; 2017-09-27 17:00)
PROC: 0DJD8ZZ Inspection of Lower Intestinal Tract, Via Natural or Artificial Opening Endoscopic (ICD-10-PCS; 2017-09-30)
DX: K92.1 Melena (principal); D62 Acute posthemorrhagic anemia; N18.4 Chronic kidney disease, stage 4 (severe); N17.9 Acute kidney failure, unspecified; E86.1 Hypovolemia; E87.1 Hypo-osmolality and hyponatremia; K29.60 Other gastritis without bleeding; K64.8 Other hemorrhoids; K57.30 Diverticulosis of large intestine without perforation or abscess without bleeding; R53.1 Weakness; I25.10 Atherosclerotic heart disease of native coronary artery without angina pectoris; I73.9 Peripheral vascular disease, unspecified; K21.9 Gastro-esophageal reflux disease without esophagitis; I12.9 Hypertensive chronic kidney disease with stage 1 through stage 4 chronic kidney disease, or unspecified chronic kidney disease; Z86.73 Personal history of transient ischemic attack (TIA), and cerebral infarction without residual deficits; Z88.0 Allergy status to penicillin; Z88.2 Allergy status to sulfonamides; Z88.8 Allergy status to other drugs, medicaments and biological substances; Z91.040 Latex allergy status
CPT/HCPCS: 36430; 74250; 76937; 80048; 80053; 83690; 83735; 85025; 85027; 85610; 85730; 86850; 86900; 86901; 86920; 88305; 93005; 96365; 96366; 96367; 96368; 96376; C9113; G0378; J0330; J1100; J2354; J2370; J2405; J3010; J7030; J7040; P9016; Q9963